=== PATIENT | female | born 1990 | race Caucasian/White ===

== ENCOUNTER 2016-10-13 21:07 | Emergency (ER) | payer OTHER ==
[~2016-10-13] VITALS: Ht 172.7 cm; Wt 123.4 kg
[~2016-10-13 21:07] MED LIST: ACET325T9 PO; ALBU0.63 NEB; ALBU8.5H6 INH; ALPR0.5T PO; ATROVENT HFA12.9 GM IH; BECL8.7A6 IH; CYCL10TA2 PO; DIAZ5TAB PO; DIGO0.12 PO; DIGO125T PO; DIPH25CA58 PO; ESCI20TA10 PO; ESOM20CA30 PO; FLUT16SP2 NS; HYDR-963 PO; HYDR10CA3 PO; LIDO700A4 TP; LISD60CA PO; LISD70CA3 PO; METH4TAB2 PO; OXYC15TA60 PO; PRAZ5CAP2 PO; PREG100C PO; SOTA160T PO; SOTA80TA PO; ZAFI20TA12 PO; [UNRECOGNIZED DRUG - OTHER] INH
[2016-10-13] MEDS ORDERED: IV NORMAL SALINE 1000ML BAG 1,000 ML IV SCH (22:00)
[2016-10-13] MEDS ORDERED: ONDANSETRON PF 4 MG/2 ML VIAL. IV ONE (22:00)
[2016-10-13 22:02] LABS: NEG OBC UR NEG; POS OBC UR POS
[2016-10-13 22:06] LABS: BILIRUBIN,URINE NEGATIVE (NEG); GLUCOSE,URINE NEGATIVE (NEG); NITRITE,URINE NEGATIVE (NEG); PROTEIN,URINE NEGATIVE (NEG-TRACE); UROBILINOGEN,URINE 0.2 mg/dL (0.2 mg/dL)
[2016-10-13 22:11] LABS: BACTERIA,URINE FEW /HPF (0-FEW); RBC,URINE 0 /HPF (0-2); SQUAMOUS EPITHELIAL CELL,UR MOD /LPF; WBC,URINE 0 /HPF (0-4)
[2016-10-13 22:24] LABS: BASO # 0.1 x10^3/uL (0.0-0.2); BASO % 1 % (0-3); EOS % 4 % (0-3); HEMATOCRIT 36.9 % (36.0-47.0); HEMOGLOBIN 11.9 g/dL (12.0-15.5); LYMPH # 2.6 x10^3/uL (1.0-4.8); LYMPH % 29 % (24-48); MEAN CORPUSCULAR HEMOGLOBIN 27 pg (25-35); MEAN CORPUSCULAR HGB CONC 32 g/dL (31-37); MEAN CORPUSCULAR VOLUME 84 fL (79-100); MONO % 8 % (0-9); NEUT % 59 % (31-73); PLATELET COUNT 236 x10^3/uL (140-400); RED BLOOD COUNT 4.42 x10^6/uL (3.50-5.40); RED CELL DISTRIBUTION WIDTH 15.1 % (11.5-14.5); WHITE BLOOD COUNT 9.1 x10^3/uL (4.0-11.0)
[2016-10-13 22:31] LABS: CALCIUM 8.5 mg/dL (8.5-10.1); CREATININE 0.8 mg/dL (0.6-1.0); GFR 87.4; POTASSIUM 3.3 mmol/L (3.5-5.1)
[2016-10-13 22:37] LABS: ALBUMIN 3.6 g/dL (3.4-5.0); ALBUMIN/GLOBULIN RATIO 1.4 (1.0-1.7); TOTAL BILIRUBIN 0.3 mg/dL (0.2-1.0); TOTAL PROTEIN 6.2 g/dL (6.4-8.2)
[2016-10-13] MEDS ORDERED: ONDA4TAB7 PO (23:59)
[2016-10-14 00:30] VITALS: BP 104/59
--- NOTE | 2016-10-14 01:10 | ED.ADGEN ---
Past Medical History Past Medical History: Anxiety, Asthma, Bipolar, Depression, GERD, Hypotension, Other Additional Past Medical Histor: ADHD, BRADYCARDIA, POC, PTSD, shingles, sick sinus syndrome Past Surgical History: Appendectomy, Cholecystectomy, , Pacemaker, Other Additional Past Surgical Histo: (R) KNEE REPAIR Alcohol Use: None Drug Use: Marijuana Adult General Chief Complaint Chief Complaint: OTHER COMPLAINTS HPI HPI Patient is a 26 year old woman, history of sick sinus syndrome with pacemaker in place, asthma, hypertension, bipolar disorder, who presents to the emergency department with complaint of concern for an allergic reaction after taking Imodium at home. Patient states that she's been experiencing diarrhea and abdominal cramping for the past day. She denies any nausea or vomiting, any sick contacts or exposures, states that she is having cramping in her lower abdomen, and multiple episodes of loose watery stool, no blood in her stool. He states he is compliant with all of her medications. Denies any drugs alcohol cigarettes or injuries. She states she took Imodium approximately 20 minutes prior to arrival in the ED, and began experiencing facial flushing, and a feeling of anxiety. She states she spoke to her mother, who works at [facility] [employer], and was told to come to the ED for evaluation with concern for an allergic reaction. At this time the patient is not experiencing any allergic type symptoms. She she has not taken Benadryl or other medications prior to coming to the ED. Review of Systems Review of Systems Constitutional: Denies fever or chills. [] Eyes: Denies change in visual acuity. [] HENT: Denies nasal congestion or sore throat. [] Respiratory: Denies cough or shortness of breath. [] Cardiovascular: Denies chest pain or edema. [] GI: Denies abdominal pain, nausea, vomiting, bloody stools or diarrhea. [] : Denies dysuria. [] Musculoskeletal: Denies back pain or joint pain. [] Integument: Denies rash. [] Neurologic: Denies headache, focal weakness or sensory changes. [] Endocrine: Denies polyuria or polydipsia. [] Lymphatic: Denies swollen glands. [] Psychiatric: Denies depression or anxiety. [] Current Medications Current Medications Current Medications Medications (Trade) Dose Ordered Sig/Luzmaria Start Time Stop Time Status Last Admin Dose Admin Ondansetron HCl (Zofran) 4 mg 1X ONCE 10/13/16 22:00 10/13/16 22:01 DC 10/13/16 22:56 4 MG Sodium Chloride (Iv Sodium Chloride 0.9% 1000ml Bag) 1,000 ml @ 1,000 mls/hr Q1H 10/13/16 22:00 10/13/16 22:59 DC 10/13/16 21:52 1,000 MLS/HR Allergies Allergies Allergies Coded Allergies Type Severity Reaction Last Updated Verified Penicillins Allergy Severe Anaphylaxis 04/25/15 Yes chicken derived Allergy Severe ANAPHYLAXIS 10/13/16 Yes NSAIDS (Non-Steroidal Anti-Inflamma Allergy Intermediate Itching/facial swelling 04/25/15 Yes acyclovir Allergy Intermediate abdominal pain 04/25/15 Yes bupropion HCl Allergy Intermediate tachycardia 04/25/15 Yes cephalexin Allergy Intermediate Itching 07/18/14 Yes clarithromycin Allergy Intermediate "oral vescicles" 07/18/14 Yes doxycycline Allergy Intermediate Itching/facial swelling 07/18/14 Yes erythromycin base Allergy Intermediate Itching/pain 07/18/14 Yes fentanyl Allergy Intermediate Hives 07/18/14 Yes fluvoxamine maleate Allergy Intermediate Hives 07/18/14 Yes gabapentin Allergy Intermediate Hives 07/18/14 Yes honey Allergy Intermediate Itching 07/18/14 Yes ibuprofen Allergy Intermediate Hives 07/18/14 Yes levofloxacin Allergy Intermediate arthralgias, myalgias 07/18/14 Yes montelukast sodium Allergy Intermediate Nausea and Vomiting/headaches Yes morphine Allergy Intermediate Itching, TOLERATES HYDROMORPHONE 07/24/14 Yes pantoprazole Allergy Intermediate Swelling 03/07/15 Yes trazodone Allergy Intermediate 07/24/14 Yes ziprasidone Allergy Intermediate 10/13/16 Yes aspirin Allergy Unknown Hives 10/13/16 Yes azithromycin Allergy Unknown Itching 10/13/16 Yes shrimp Allergy Unknown Swelling 10/13/16 Yes Physical Exam Physical Exam Constitutional: Well developed, well nourished, no acute distress, non-toxic appearance. [] HENT: Normocephalic, atraumatic, bilateral external ears normal, oropharynx moist, no oral exudates, nose normal. [] Eyes: PERRLA, EOMI, conjunctiva normal, no discharge. [] Neck: Normal range of motion, no tenderness, supple, no stridor. [] Cardiovascular:Heart rate regular rhythm, no murmur, S1, S2, no murmurs rubs or gallops. Patient with pacemaker site clean dry and intact on palpation. [] Lungs & Thorax: Bilateral breath sounds clear to auscultation, no wheezing, rhonchi, rales. No chest tenderness or crepitus. [] Abdomen: Bowel sounds normal, soft, mild tenderness to palpation, rather lower quadrant, no rebound, no rigidity, no guarding , no masses, no pulsatile masses. [] Skin: Warm, dry, no erythema, no rash. [] Back: No tenderness, no CVA tenderness. [] Extremities: No tenderness, no cyanosis, no clubbing, ROM intact, no edema. [ Negative Homans sign.] Neurologic: Alert and oriented X 3, normal motor function, normal sensory function, no focal deficits noted. [] Psychologic: Affect normal, judgement normal, mood normal. [] Current Patient Data Vital Signs Vital Signs Date Time Temp Pulse Resp B/P Pulse Ox O2 Delivery O2 Flow Rate FiO2 10/13/16 22:45 62 20 102/58 99 Room Air 10/13/16 21:07 97.8 97.8 Lab Values Laboratory Tests Test 10/13/16 21:40 10/13/16 22:15 Urine Collection Type Unknown Urine Color Yellow Urine Clarity Clear Urine pH 6.0 Urine Specific [place] <=1.005 Urine Protein Negativemg/dL (NEG-TRACE) Urine Glucose (UA) Negativemg/dL (NEG) Urine Ketones (Stick) Negativemg/dL (NEG) Urine Blood Negative (NEG) Urine Nitrite Negative (NEG) Urine Bilirubin Negative (NEG) Urine Urobilinogen Dipstick 0.2mg/dL (0.2 mg/dL) Urine Leukocyte Esterase Negative (NEG) Urine RBC 0/HPF (0-2) Urine WBC 0/HPF (0-4) Urine Squamous Epithelial Cells Mod/LPF Urine Bacteria Few/HPF (0-FEW) Urine Test Negative (NEG) White Blood Count 9.1x10^3/uL (4.0-11.0) Red Blood Count 4.42x10^6/uL (3.50-5.40) Hemoglobin 11.9g/dL (12.0-15.5) L Hematocrit 36.9% (36.0-47.0) Mean Corpuscular Volume 84fL (79-100) Mean Corpuscular Hemoglobin 27pg (25-35) Mean Corpuscular Hemoglobin Concent 32g/dL (31-37) Red Cell Distribution Width 15.1% (11.5-14.5) H Platelet Count 236x10^3/uL (140-400) Neutrophils (%) (Auto) 59% (31-73) Lymphocytes (%) (Auto) 29% (24-48) Monocytes (%) (Auto) 8% (0-9) Eosinophils (%) (Auto) 4% (0-3) H Basophils (%) (Auto) 1% (0-3) Neutrophils # (Auto) 5.3x10^3uL (1.8-7.7) Lymphocytes # (Auto) 2.6x10^3/uL (1.0-4.8) Monocytes # (Auto) 0.7x10^3/uL (0.0-1.1) Eosinophils # (Auto) 0.3x10^3/uL (0.0-0.7) Basophils # (Auto) 0.1x10^3/uL (0.0-0.2) Sodium Level 140mmol/L (136-145) Potassium Level 3.3mmol/L (3.5-5.1) L Chloride Level 108mmol/L (98-107) H Carbon Dioxide Level 23mmol/L (21-32) Anion Gap 9 (6-14) Blood Urea Nitrogen 10mg/dL (7-20) Creatinine 0.8mg/dL (0.6-1.0) Estimated GFR (Cockcroft-Gault) 87.4 BUN/Creatinine Ratio 13 (6-20) Glucose Level 108mg/dL (70-99) H Calcium Level 8.5mg/dL (8.5-10.1) Total Bilirubin 0.3mg/dL (0.2-1.0) Aspartate Amino Transferase (AST) 27U/L (15-37) Alanine Aminotransferase (ALT) 37U/L (14-59) Alkaline Phosphatase 81U/L (46-116) Total Protein 6.2g/dL (6.4-8.2) L Albumin 3.6g/dL (3.4-5.0) Albumin/Globulin Ratio 1.4 (1.0-1.7) Lipase 92U/L (73-393) Laboratory Tests 10/13/16 22:15 Laboratory Tests 10/13/16 22:15 EKG EKG ECG: Rhythm strip: Sinus rhythm, paced rhythm, heart rate 70 bpm, as interpreted by me. [] Radiology/Procedures Radiology/Procedures Not indicated. [] Course & Med Decision Making Course & Med Decision Making Pertinent Labs and Imaging studies reviewed. (See chart for details) Patient well-appearing, with normal vital signs in arrival. No evidence of lower airspace disease or airway compromise, no rashes or other findings consistent with allergic reaction at this time. Patient has recently been on antibiotics, multiple courses of the past 2 months for upper respiratory infection. He is not currently on any antibiotics, but is concerned that she may have developed C. difficile, as the cause of her diarrhea. I stated patient that if she produced a stool sample in the ED was sent down for analysis, but she is already sprinting diarrhea for the past 24 hours. She denies drinking any other symptoms. Patient received Zofran in the ED, IV fluids, and laboratory studies. Motor says revealed very mild hypokalemia, no other acutely concerning findings. Patient is tolerating by mouth fluids in the ED without issue. Patient did not have a additional bowel movement in the ED. After she was observed for several hours, I discussed these findings with patient, and she is ready to be discharged home, has not have recurrence of any concerning symptoms. Discussed with her that if diarrhea returns or persists that she needs to follow-up with a primary care provider, and to continue all medications as directed. To return to the ED for concerning symptoms as discussed. Patient voiced understanding and agreement with plan as stated. Discharged home in stable condition with plan as above. Dragon Disclaimer Dragon Disclaimer This electronic medical record was generated, in whole or in part, using a voice recognition dictation system. Departure Impression: Primary Impression: Diarrhea Disposition: 01 HOME, SELF-CARE Condition: IMPROVED Scripts Ondansetron Hcl (Zofran)4 Mg Tablet4 Mg PO BID PRN NAUSEA/VOMITING #10 TAB Prov:BOSTON BORRERO DO 10/13/16 Problem Qualifiers Primary Impression: Diarrhea Diarrhea type: unspecified type Qualified Code: R19.7 - Diarrhea, unspecified BOSTON BORRERO DO Oct 14, 2016 01:10
== END 2016-10-14 00:40 | disposition home or self-care (01) ==
LOC: ER 21:07
DX: T47.6X5A Adverse effect of antidiarrheal drugs, initial encounter (principal); R19.7 Diarrhea, unspecified; F31.9 Bipolar disorder, unspecified; I10 Essential (primary) hypertension; K21.9 Gastro-esophageal reflux disease without esophagitis; J45.909 Unspecified asthma, uncomplicated; I49.5 Sick sinus syndrome; F90.9 Attention-deficit hyperactivity disorder, unspecified type; F12.10 Cannabis abuse, uncomplicated; F43.10 Post-traumatic stress disorder, unspecified; Z95.0 Presence of cardiac pacemaker; Z98.890 Other specified postprocedural states; Z90.49 Acquired absence of other specified parts of digestive tract; F41.9 Anxiety disorder, unspecified; Z88.0 Allergy status to penicillin; Z88.1 Allergy status to other antibiotic agents; Z88.6 Allergy status to analgesic agent; Z91.013 Allergy to seafood; Z88.8 Allergy status to other drugs, medicaments and biological substances; Z91.018 Allergy to other foods; Y92.098 Other place in other non-institutional residence as the place of occurrence of the external cause
CPT/HCPCS: 80053; 81001; 81025; 83690; 85027; 96361; 96374; 99284; J2405; J7030; 36415

== ENCOUNTER → 2016-11-02 | Outpatient (CLI) | payer OTHER ==
[2016-10-14 00:30] VITALS: BP 104/59
[~2016-11-02] MED LIST changes: +ONDA4TAB7 PO
[2016-11-02 12:01] LABS: BASO % 0 % (0-3); EOS % 5 % (0-3); HEMATOCRIT 43.9 % (36.0-47.0); HEMOGLOBIN 14.1 g/dL (12.0-15.5); LYMPH % 16 % (24-48); MEAN CORPUSCULAR HEMOGLOBIN 26 pg (25-35); MEAN CORPUSCULAR HGB CONC 32 g/dL (31-37); MEAN CORPUSCULAR VOLUME 82 fL (79-100); MONO % 7 % (0-9); NEUT % 72 % (31-73); PLATELET COUNT 299 x10^3/uL (140-400); RED BLOOD COUNT 5.35 x10^6/uL (3.50-5.40); RED CELL DISTRIBUTION WIDTH 15.3 % (11.5-14.5); WHITE BLOOD COUNT 12.7 x10^3/uL (4.0-11.0)
== END | disposition home or self-care (01) ==
LOC: LAB 11:31
PROVIDERS: ATTEND Internal Medicine Gastroenterology
DX: R19.7 Diarrhea, unspecified (principal)
CPT/HCPCS: 36415; 85027; 87324

== ENCOUNTER 2017-06-08 17:54 | Emergency (ER) | payer OTHER ==
[~2017-06-08] VITALS: Ht 170.2 cm; Wt 123.4 kg
[~2017-06-08 17:54] MED LIST changes: -ESCI20TA10 PO; +LEXAPRO20 MG PO; -LISD70CA3 PO; +LISD70CA5 PO; -SOTA80TA PO; +SOTA80TA48 PO
[2017-06-08 18:14] VITALS: BP 131/59
[2017-06-08] MEDS ORDERED: CIPR500T94 PO (19:01)
--- NOTE | 2017-06-08 19:01 | PHYS DOC ---
Past Medical History Past Medical History: Anxiety, Asthma, Bipolar, Depression, GERD, Hypotension, Other Additional Past Medical Histor: ADHD, BRADYCARDIA, POC, PTSD, shingles, sick sinus syndrome Past Surgical History: Appendectomy, Cholecystectomy, , Pacemaker, Other Additional Past Surgical Histo: (R) KNEE REPAIR Alcohol Use: None Drug Use: Marijuana Adult General Chief Complaint Chief Complaint: EARACHE/EAR PAIN [facility] HPI Patient is a 27 year old female with history of anxiety asthma hypertension bipolar who presents today complaining of coughing and nasal congestion for 10 days and left ear pain that began today after coughing hard. Patient denies any drainage from the left ear. Denies any fever. Review of Systems Review of Systems Constitutional: See history of present illness Eyes: Denies change in visual acuity, redness, or eye pain [] HENT: nasal congestion left ear pain Respiratory: cough Cardiovascular: No additional information not addressed in HPI [] GI: Denies abdominal pain, nausea, vomiting, bloody stools or diarrhea [] : Denies dysuria or hematuria [] Musculoskeletal: Denies back pain or joint pain [] Integument: Denies rash or skin lesions [] Neurologic: Denies headache, focal weakness or sensory changes [] Endocrine: Denies polyuria or polydipsia [] Allergies Allergies Allergies Coded Allergies Type Severity Reaction Last Updated Verified Penicillins Allergy Severe Anaphylaxis 04/25/15 Yes chicken derived Allergy Severe ANAPHYLAXIS 10/13/16 Yes NSAIDS (Non-Steroidal Anti-Inflamma Allergy Intermediate Itching/facial swelling 04/25/15 Yes acyclovir Allergy Intermediate abdominal pain 04/25/15 Yes bupropion HCl Allergy Intermediate tachycardia 04/25/15 Yes cephalexin Allergy Intermediate Itching 07/18/14 Yes clarithromycin Allergy Intermediate "oral vescicles" 07/18/14 Yes doxycycline Allergy Intermediate Itching/facial swelling 07/18/14 Yes erythromycin base Allergy Intermediate Itching/pain 07/18/14 Yes fentanyl Allergy Intermediate Hives 07/18/14 Yes fluvoxamine maleate Allergy Intermediate Hives 07/18/14 Yes gabapentin Allergy Intermediate Hives 07/18/14 Yes honey Allergy Intermediate Itching 07/18/14 Yes ibuprofen Allergy Intermediate Hives 07/18/14 Yes levofloxacin Allergy Intermediate arthralgias, myalgias 07/18/14 Yes montelukast sodium Allergy Intermediate Nausea and Vomiting/headaches Yes morphine Allergy Intermediate Itching, TOLERATES HYDROMORPHONE 07/24/14 Yes pantoprazole Allergy Intermediate Swelling 03/07/15 Yes trazodone Allergy Intermediate 07/24/14 Yes ziprasidone Allergy Intermediate 10/13/16 Yes aspirin Allergy Unknown Hives 10/13/16 Yes azithromycin Allergy Unknown Itching 10/13/16 Yes shrimp Allergy Unknown Swelling 10/13/16 Yes Physical Exam Physical Exam Constitutional: Well developed, well nourished, no acute distress, non-toxic appearance. [] HENT: Normocephalic, atraumatic, bilateral external ears normal, oropharynx moist, no oral exudates, Patient sounds congested nasally. Bilateral nasal turbinates are boggy and erythematous. Left TM is moderately injected, right TM is mildly injected Eyes: PERRLA, EOMI, conjunctiva normal, no discharge. [] Neck: Normal range of motion, no tenderness, supple, no stridor. [] Cardiovascular:Heart rate regular rhythm, no murmur [] Lungs & Thorax: Bilateral breath sounds clear to auscultation [] Abdomen: Bowel sounds normal, soft, no tenderness, no masses, no pulsatile masses. [] Skin: Warm, dry, no erythema, no rash. [] Back: No tenderness, no CVA tenderness. [] Extremities: No tenderness, no cyanosis, no clubbing, ROM intact, no edema. [] Neurologic: Alert and oriented X 3, normal motor function, normal sensory function, no focal deficits noted. [] Psychologic: Affect normal, judgement normal, mood normal. [] Current Patient Data Vital Signs Vital Signs Date Time Temp Pulse Resp B/P (MAP) Pulse Ox O2 Delivery O2 Flow Rate FiO2 06/08/17 18:14 98.2 73 16 98 Room Air 98.2 EKG EKG [] Radiology/Procedures Radiology/Procedures [] Course & Med Decision Making Course & Med Decision Making Pertinent Labs and Imaging studies reviewed. (See chart for details) Patient has otitis media sinusitis and a cough. She was requesting codeine with promethazine. Informed her we do not prescribe this medicine due to the increased risk of abuse. She states she is allergic to multiple medications. Gave her prescription for Cipro. Told her she can take any [id number] medication but she is not allergic to. F/u with her PCP in one week. Allison Disclaimer Allison Disclaimer This electronic medical record was generated, in whole or in part, using a voice recognition dictation system. Departure Departure Impression: Primary Impression: Sinusitis Additional Impressions: Otitis media Cough Disposition: HOME, SELF-CARE Condition: STABLE Referrals: NO PCP (PCP) follow with your doctor in one week Patient Instructions: Cough, Adult, Otitis Media, Adult, Sinusitis Additional Instructions: You were seen for sinus infection and ear infection. Take the prescribed antibiotic until completed. Take any [id number] medications for pain. Follow-up with your doctor in 1-2 weeks. Scripts Ciprofloxacin Hcl (CIPRO) 500 Mg Tablet 1 TAB PO BID, #20 TAB Prov: GERHARD BYRD APRN 06/08/17 Problem Qualifiers Primary Impression: Sinusitis Sinusitis location: frontal Chronicity: acute Recurrence: not specified as recurrent Qualified Codes: J01.10 - Acute frontal sinusitis, unspecified Additional Impressions: Otitis media Otitis media type: other nonsuppurative Chronicity: acute Laterality: bilateral Recurrence: not specified as recurrent Qualified Codes: H65.193 - Other acute nonsuppurative otitis media, bilateral GERHARD BYRD [employer] Jun 08, 2017 19:01
== END 2017-06-08 19:36 | disposition home or self-care (01) ==
LOC: ER 17:54
DX: J01.10 Acute frontal sinusitis, unspecified (principal); H65.193 Other acute nonsuppurative otitis media, bilateral; F41.9 Anxiety disorder, unspecified; J45.909 Unspecified asthma, uncomplicated; F31.9 Bipolar disorder, unspecified; K21.9 Gastro-esophageal reflux disease without esophagitis; I95.9 Hypotension, unspecified; F90.9 Attention-deficit hyperactivity disorder, unspecified type; F43.10 Post-traumatic stress disorder, unspecified; I10 Essential (primary) hypertension; Z95.0 Presence of cardiac pacemaker; Z90.49 Acquired absence of other specified parts of digestive tract; Z88.0 Allergy status to penicillin; Z88.6 Allergy status to analgesic agent; Z88.4 Allergy status to anesthetic agent; Z88.1 Allergy status to other antibiotic agents; Z88.5 Allergy status to narcotic agent; Z91.013 Allergy to seafood; Z91.018 Allergy to other foods
CPT/HCPCS: 99283

== ENCOUNTER 2017-06-29 00:46 | Emergency (ER) | payer SELFPAY ==
[~2017-06-29] VITALS: Ht 172.7 cm; Wt 117.9 kg
[~2017-06-29 00:46] MED LIST changes: +CIPR500T94 PO
[2017-06-29 00:57] VITALS: BP 118/65
[2017-06-29] MEDS ORDERED: IBUPROFEN 800 MG TABLET. PO ONE (01:45)
--- NOTE | 2017-06-29 01:45 | PHYS DOC ---
Past Medical History Past Medical History: Anxiety, Asthma, Bipolar, Depression, GERD, Hypotension, Other Additional Past Medical Histor: ADHD, BRADYCARDIA, POC, PTSD, shingles, sick sinus syndrome Past Surgical History: Appendectomy, Cholecystectomy, , Pacemaker, Other Additional Past Surgical Histo: (R) KNEE REPAIR Alcohol Use: None Drug Use: Marijuana Adult General Chief Complaint Chief Complaint: SORE THROAT HPI HPI 27-year-old female with a history of anxiety and asthma bipolar depression, now presents the emergency department complaining of sore throat for several days. Patient states she's been having a dry cough. She is a smoker. She has no fevers chills sweats or shaking chills. No headache or stiff neck. Patient has previously had a tonsillectomy. She states she has some mild discomfort with swallowing she is able swallow without difficulty. No voice changes or difficulty breathing. No other complaints Review of Systems Review of Systems Constitutional: Denies fever or chills [] Eyes: Denies change in visual acuity, redness, or eye pain [] HENT: Denies nasal congestion or sore throat [] Respiratory: Denies cough or shortness of breath [] Cardiovascular: No additional information not addressed in HPI [] GI: Denies abdominal pain, nausea, vomiting, bloody stools or diarrhea [] : Denies dysuria or hematuria [] Musculoskeletal: Denies back pain or joint pain [] Integument: Denies rash or skin lesions [] Neurologic: Denies headache, focal weakness or sensory changes [] Endocrine: Denies polyuria or polydipsia [] Current Medications Current Medications Current Medications Medications (Trade) Dose Ordered Sig/Luzmaria Start Time Stop Time Status Last Admin Dose Admin Ibuprofen (Motrin) 800 mg 1X ONCE 06/29/17 01:45 06/29/17 01:46 Allergies Allergies Allergies Coded Allergies Type Severity Reaction Last Updated Verified Penicillins Allergy Severe Anaphylaxis 04/25/15 Yes chicken derived Allergy Severe ANAPHYLAXIS 10/13/16 Yes acyclovir Allergy Intermediate abdominal pain 04/25/15 Yes bupropion HCl Allergy Intermediate tachycardia 04/25/15 Yes cephalexin Allergy Intermediate Itching 07/18/14 Yes clarithromycin Allergy Intermediate "oral vescicles" 07/18/14 Yes doxycycline Allergy Intermediate Itching/facial swelling 07/18/14 Yes erythromycin base Allergy Intermediate Itching/pain 07/18/14 Yes fentanyl Allergy Intermediate Hives 07/18/14 Yes fluvoxamine maleate Allergy Intermediate Hives 07/18/14 Yes gabapentin Allergy Intermediate Hives 07/18/14 Yes honey Allergy Intermediate Itching 07/18/14 Yes levofloxacin Allergy Intermediate arthralgias, myalgias 07/18/14 Yes montelukast sodium Allergy Intermediate Nausea and Vomiting/headaches Yes morphine Allergy Intermediate Itching, TOLERATES HYDROMORPHONE 07/24/14 Yes pantoprazole Allergy Intermediate Swelling 03/07/15 Yes trazodone Allergy Intermediate 07/24/14 Yes ziprasidone Allergy Intermediate 10/13/16 Yes aspirin Allergy Unknown Hives 10/13/16 Yes azithromycin Allergy Unknown Itching 10/13/16 Yes shrimp Allergy Unknown Swelling 10/13/16 Yes Physical Exam Physical Exam Well-appearing morbidly obese female no acute distress, supple neck normal appearing oropharynx no anterior cervical adenopathy. Normal voice no stridor clear lungs regular rate and rhythm nontender abdomen normal extremities benign exam Constitutional: Well developed, well nourished, no acute distress, non-toxic appearance. [] HENT: Normocephalic, atraumatic, bilateral external ears normal, oropharynx moist, no oral exudates, nose normal. [] Eyes: PERRLA, EOMI, conjunctiva normal, no discharge. [] Neck: Normal range of motion, no tenderness, supple, no stridor. [] Cardiovascular:Heart rate regular rhythm, no murmur [] Lungs & Thorax: Bilateral breath sounds clear to auscultation [] Abdomen: Bowel sounds normal, soft, no tenderness, no masses, no pulsatile masses. [] Skin: Warm, dry, no erythema, no rash. [] Back: No tenderness, no CVA tenderness. [] Extremities: No tenderness, no cyanosis, no clubbing, ROM intact, no edema. [] Neurologic: Alert and oriented X 3, normal motor function, normal sensory function, no focal deficits noted. [] Psychologic: Affect normal, judgement normal, mood normal. [] Current Patient Data Vital Signs Vital Signs Date Time Temp Pulse Resp B/P (MAP) Pulse Ox O2 Delivery O2 Flow Rate FiO2 06/29/17 00:57 98.5 74 20 98 Room Air 98.5 EKG EKG [] Radiology/Procedures Radiology/Procedures [] Course & Med Decision Making Course & Med Decision Making Pertinent Labs and Imaging studies reviewed. (See chart for details) Signs and symptoms consistent with viral syndrome with URI and mild sore throat. No clinical evidence of strep. Patient is concerned about the possibility of strep so rapid strep test is pending. No further workup or treatment is indicated as patient has no evidence of bacterial infection. She is aware to use Mucinex DM [id number] or other oaiu-xap-cestrws cough control formulations as desired. We discussed smoking cessation and patient is aware of critical importance of quitting tobacco to optimize her long-term health. No further workup or treatment indicated patient agrees with outpatient follow-up tomorrow and strict return precautions given [] Dragon Disclaimer Dragon Disclaimer This electronic medical record was generated, in whole or in part, using a voice recognition dictation system. Departure Departure Impression: Primary Impression: Viral URI with cough Additional Impression: Viral pharyngitis Disposition: HOME, SELF-CARE Condition: STABLE Referrals: NO PCP (PCP) Patient Instructions: Upper Respiratory Infection, Adult, Viral Pharyngitis Additional Instructions: It appears that your sore throat as well as your upper respiratory infection are a result of viral syndrome. Viral infections get better on their own it's important to just rest and drink plenty of fluids. If you have fevers take Motrin and Tylenol as needed. Consider [id number] Mucinex DM for cough control as well as to break up mucus. Follow-up with your doctor tomorrow and return immediately for new severe or worsening symptoms Problem Qualifiers NATASHA DÍAZ MD Jun 29, 2017 01:45
[2017-06-29 06:55] LABS: NEGATIVE OBC STREP NEG; POSITIVE OBC STREP POS
== END 2017-06-29 01:57 | disposition home or self-care (01) ==
LOC: ER 00:46
DX: J02.8 Acute pharyngitis due to other specified organisms (principal); J06.9 Acute upper respiratory infection, unspecified; B97.89 Other viral agents as the cause of diseases classified elsewhere; E66.01 Morbid (severe) obesity due to excess calories; F41.9 Anxiety disorder, unspecified; J45.909 Unspecified asthma, uncomplicated; F31.9 Bipolar disorder, unspecified; K21.9 Gastro-esophageal reflux disease without esophagitis; I95.9 Hypotension, unspecified; F90.9 Attention-deficit hyperactivity disorder, unspecified type; F43.10 Post-traumatic stress disorder, unspecified; F17.200 Nicotine dependence, unspecified, uncomplicated; Z95.0 Presence of cardiac pacemaker; Z88.0 Allergy status to penicillin; Z68.39 Body mass index [BMI] 39.0-39.9, adult; Z90.49 Acquired absence of other specified parts of digestive tract; Z88.6 Allergy status to analgesic agent; Z88.4 Allergy status to anesthetic agent; Z88.1 Allergy status to other antibiotic agents; Z91.02 Food additives allergy status; Z91.013 Allergy to seafood; Z88.8 Allergy status to other drugs, medicaments and biological substances; Z91.018 Allergy to other foods
CPT/HCPCS: 87070; 87880; 99283

== ENCOUNTER 2017-07-02 09:43 | Emergency (ER) | payer SELFPAY ==
[~2017-07-02] VITALS: Ht 170.2 cm; Wt 113.4 kg
[2017-07-02 09:57] VITALS: BP 145/67
[2017-07-02] MEDS ORDERED: SULF1TAB24 PO (10:11)
[2017-07-02] MEDS ORDERED: PRED20TA PO (10:11)
--- NOTE | 2017-07-02 10:11 | PHYS DOC ---
Past Medical History Past Medical History: Anxiety, Asthma, Bipolar, Depression, GERD, Hypotension, Other Additional Past Medical Histor: ADHD, BRADYCARDIA, POC, PTSD, shingles, sick sinus syndrome Past Surgical History: Appendectomy, Cholecystectomy, , Pacemaker, Other Additional Past Surgical Histo: (R) KNEE REPAIR Alcohol Use: None Drug Use: Marijuana Adult General Chief Complaint Chief Complaint: SORE THROAT HPI HPI Patient is a 27 year old female with a history of asthma presents the ED complaining of sore throat 4 days. Pain with swallowing. Rates the pain as 8 out of 10. Describes as sharp. Associated symptoms include cough. Denies headache, fever, nausea/vomiting, abdominal pain, chest pain or shortness of breath. Currently on LMP. Review of Systems Review of Systems Constitutional: Denies fever or chills [] Eyes: Denies change in visual acuity, redness, or eye pain [] HENT: Denies nasal congestion. Complains of sore throat. [] Respiratory: Complains of cough. Denies shortness of breath [] Cardiovascular: No additional information not addressed in HPI [] GI: Denies abdominal pain, nausea, vomiting, bloody stools or diarrhea [] : Denies dysuria or hematuria [] Musculoskeletal: Denies back pain or joint pain [] Integument: Denies rash or skin lesions [] Neurologic: Denies headache, focal weakness or sensory changes [] Endocrine: Denies polyuria or polydipsia [] Allergies Allergies Allergies Coded Allergies Type Severity Reaction Last Updated Verified Penicillins Allergy Severe Anaphylaxis 04/25/15 Yes chicken derived Allergy Severe ANAPHYLAXIS 10/13/16 Yes acyclovir Allergy Intermediate abdominal pain 04/25/15 Yes bupropion HCl Allergy Intermediate tachycardia 04/25/15 Yes cephalexin Allergy Intermediate Itching 07/18/14 Yes clarithromycin Allergy Intermediate "oral vescicles" 07/18/14 Yes doxycycline Allergy Intermediate Itching/facial swelling 07/18/14 Yes erythromycin base Allergy Intermediate Itching/pain 07/18/14 Yes fentanyl Allergy Intermediate Hives 07/18/14 Yes fluvoxamine maleate Allergy Intermediate Hives 07/18/14 Yes gabapentin Allergy Intermediate Hives 07/18/14 Yes honey Allergy Intermediate Itching 07/18/14 Yes levofloxacin Allergy Intermediate arthralgias, myalgias 07/18/14 Yes montelukast sodium Allergy Intermediate Nausea and Vomiting/headaches Yes morphine Allergy Intermediate Itching, TOLERATES HYDROMORPHONE 07/24/14 Yes pantoprazole Allergy Intermediate Swelling 03/07/15 Yes trazodone Allergy Intermediate 07/24/14 Yes ziprasidone Allergy Intermediate 10/13/16 Yes aspirin Allergy Unknown Hives 10/13/16 Yes azithromycin Allergy Unknown Itching 10/13/16 Yes shrimp Allergy Unknown Swelling 10/13/16 Yes Physical Exam Physical Exam Constitutional: Well developed, well nourished, no acute distress, non-toxic appearance. [] HENT: Normocephalic, atraumatic, bilateral external ears normal, oropharynx moist, MILD PHARYNGEAL ERYTHEMA. Uvula midline. no oral exudates, nose normal. [ ] Eyes: PERRLA, EOMI, conjunctiva normal, no discharge. [] Neck: Normal range of motion, no tenderness, supple, no stridor. [] Cardiovascular:Heart rate regular rhythm, no murmur [] Lungs & Thorax: Bilateral breath sounds clear to auscultation [] Abdomen: Bowel sounds normal, soft, no tenderness, no masses, no pulsatile masses. [] Skin: Warm, dry, no erythema, no rash. [] Back: No tenderness, no CVA tenderness. [] Extremities: No tenderness, no cyanosis, no clubbing, ROM intact, no edema. [] Neurologic: Alert and oriented X 3, normal motor function, normal sensory function, no focal deficits noted. [] Psychologic: Affect normal, judgement normal, mood normal. [] Current Patient Data Vital Signs Vital Signs Date Time Temp Pulse Resp B/P (MAP) Pulse Ox O2 Delivery O2 Flow Rate FiO2 07/02/17 09:57 98.6 83 20 97 Room Air 98.6 EKG EKG [] Radiology/Procedures Radiology/Procedures [] Course & Med Decision Making Course & Med Decision Making Pertinent Labs and Imaging studies reviewed. (See chart for details) [] Patient states she is allergic to multiple antibiotics except for Bactrim. States she has taken in the past and has had no problem. Denies history of anaphylactic reaction. Will prescribe Bactrim and Prednisone. Patient has inhaler at home. Vital stable, no acute distress. Discussed follow-up with PCP in one to 2 days. Provided contact information/education. Discussed reasons to return to the ED. Patient understands and agrees with plan. Dragon Disclaimer Dragon Disclaimer This electronic medical record was generated, in whole or in part, using a voice recognition dictation system. Departure Departure Impression: Primary Impression: Cough Additional Impression: Sore throat Disposition: HOME, SELF-CARE Condition: STABLE Referrals: NO PCP (PCP) NATASHA HARTMANN MD Patient Instructions: Cough, Adult, Sore Throat Scripts Sulfamethoxazole/Trimethoprim (BACTRIM DS TABLET) 1 Each Tablet 1 TAB PO BID, #20 TAB Prov: TATY JOHNSON 07/02/17 Prednisone (PREDNISONE) 20 Mg Tablet 2 TAB PO DAILY, #10 TAB Prov: TATY JOHNSON 07/02/17 Problem Qualifiers TATY JOHNSON Jul 02, 2017 10:11
== END 2017-07-02 10:28 | disposition home or self-care (01) ==
LOC: ER 09:43
DX: R05 Cough (principal); J02.9 Acute pharyngitis, unspecified; J45.909 Unspecified asthma, uncomplicated; K21.9 Gastro-esophageal reflux disease without esophagitis; F90.9 Attention-deficit hyperactivity disorder, unspecified type; F43.10 Post-traumatic stress disorder, unspecified; Z95.0 Presence of cardiac pacemaker; Z88.0 Allergy status to penicillin; Z88.1 Allergy status to other antibiotic agents; Z91.018 Allergy to other foods; Z91.013 Allergy to seafood
CPT/HCPCS: 99283

== ENCOUNTER 2017-10-28 16:38 | Emergency (ER) | payer SELFPAY ==
[2017-10-28 18:17] LABS: INFLUENZA A PATIENT NEGATIVE (NEGATIVE); INFLUENZA B PATIENT NEGATIVE (NEGATIVE); OBC FLU VALID
== END 2017-10-28 18:44 | disposition home or self-care (01) ==
LOC: ER 16:38
DX: R05 Cough (principal); R09.81 Nasal congestion; R50.9 Fever, unspecified; J02.9 Acute pharyngitis, unspecified; F41.9 Anxiety disorder, unspecified; J45.909 Unspecified asthma, uncomplicated; F31.9 Bipolar disorder, unspecified; K21.9 Gastro-esophageal reflux disease without esophagitis; I95.9 Hypotension, unspecified; F90.9 Attention-deficit hyperactivity disorder, unspecified type; F43.10 Post-traumatic stress disorder, unspecified; F12.10 Cannabis abuse, uncomplicated; Z90.49 Acquired absence of other specified parts of digestive tract; Z95.0 Presence of cardiac pacemaker; Z88.6 Allergy status to analgesic agent; Z88.4 Allergy status to anesthetic agent; Z88.1 Allergy status to other antibiotic agents; Z88.5 Allergy status to narcotic agent; Z88.0 Allergy status to penicillin; Z91.013 Allergy to seafood; Z88.8 Allergy status to other drugs, medicaments and biological substances; Z91.018 Allergy to other foods
CPT/HCPCS: 87804; 87804-59; 99284

== ENCOUNTER 2017-11-25 10:07 | Emergency (ER) | payer SELFPAY ==
[2017-11-25] MEDS: DIPHTH,PERTUSS(ACELL),TET TOX 0.5 ML DISP.SYRIN. VAX IM ×2 (11:20)
== END 2017-11-25 11:58 | disposition home or self-care (01) ==
LOC: ER 10:07
DX: L02.01 Cutaneous abscess of face (principal); F41.9 Anxiety disorder, unspecified; J45.909 Unspecified asthma, uncomplicated; F31.9 Bipolar disorder, unspecified; K21.9 Gastro-esophageal reflux disease without esophagitis; I95.9 Hypotension, unspecified; F90.9 Attention-deficit hyperactivity disorder, unspecified type; F43.10 Post-traumatic stress disorder, unspecified; I10 Essential (primary) hypertension; F12.10 Cannabis abuse, uncomplicated; Z90.49 Acquired absence of other specified parts of digestive tract; Z95.0 Presence of cardiac pacemaker; Z87.891 Personal history of nicotine dependence; Z88.1 Allergy status to other antibiotic agents; Z88.0 Allergy status to penicillin; Z86.19 Personal history of other infectious and parasitic diseases; Z88.6 Allergy status to analgesic agent; Z88.4 Allergy status to anesthetic agent; Z88.5 Allergy status to narcotic agent; Z91.013 Allergy to seafood; Z88.8 Allergy status to other drugs, medicaments and biological substances; Z91.018 Allergy to other foods
CPT/HCPCS: 90471; 90715; 99283-25

== ENCOUNTER 2018-02-28 10:22 | Emergency (ER) | payer SELFPAY ==
[2018-02-28] MEDS: BENZONATATE 100 MG CAPSULE. PO (10:54)
[2018-02-28] MEDS: CETIRIZINE HCL 10 MG TABLET. PO (10:55)
[2018-02-28] MEDS: predniSONE 20 MG TABLET PO (10:55)
[2018-02-28] MEDS: IPRATRPIUM/ALBUTEROL 0.5/2.5MG 3 ML NEBU. NEB (11:05)
== END 2018-02-28 11:15 | disposition home or self-care (01) ==
LOC: ER 11:15
DX: J45.21 Mild intermittent asthma with (acute) exacerbation (principal); K21.9 Gastro-esophageal reflux disease without esophagitis; F90.9 Attention-deficit hyperactivity disorder, unspecified type; I10 Essential (primary) hypertension; F31.9 Bipolar disorder, unspecified; F43.10 Post-traumatic stress disorder, unspecified; Z95.0 Presence of cardiac pacemaker; F12.10 Cannabis abuse, uncomplicated; Z88.1 Allergy status to other antibiotic agents; Z88.0 Allergy status to penicillin; Z88.5 Allergy status to narcotic agent; Z88.8 Allergy status to other drugs, medicaments and biological substances; Z91.041 Radiographic dye allergy status; Z91.013 Allergy to seafood; Z88.4 Allergy status to anesthetic agent; Z91.018 Allergy to other foods
CPT/HCPCS: 94640; 99284; J7512; J7620

== ENCOUNTER 2018-07-04 12:47 | Observation (INO) | payer SELFPAY ==
[2018-07-04] VITALS (11 sets, daily range): BP systolic 100–128; BP diastolic 49–72
[~2018-07-04] VITALS: Ht 170.2 cm; Wt 113.9 kg
[~2018-07-04 12:47] MED LIST changes: +BENZ100C PO; +CETI10TA22 PO; +GUAI600T47 PO; +HYDR-971 PO; +PRED20TA PO; +PRED50TA PO; +PROAIR RESPICL90 MCG IH; +SULF1TAB24 PO
[2018-07-04 13:34] LABS: HEMATOCRIT 39.4 % (36.0-47.0); HEMOGLOBIN 13.3 g/dL (12.0-15.5); RED BLOOD COUNT 4.55 x10^6/uL (3.50-5.40); RED CELL DISTRIBUTION WIDTH 14.8 % (11.5-14.5); WHITE BLOOD COUNT 8.2 x10^3/uL (4.0-11.0)
[2018-07-04 13:45] LABS: PROTHROMBIN TIME PATIENT 13.2 SEC (11.7-14.0)
[2018-07-04 13:50] LABS: CALCIUM 9.6 mg/dL (8.5-10.1); CREATININE 0.9 mg/dL (0.6-1.0); GFR 75.1; POTASSIUM 3.8 mmol/L (3.5-5.1)
[2018-07-04] MEDS ORDERED: BACITRACIN 50,000 UNIT in IV NORMAL SALINE 250ML 250 ML IRR ONE (14:00)
[2018-07-04] MEDS ORDERED: LIDOCAINE 2%/EPI 1:100,000 20 ML VIAL. ONE (14:17)
[2018-07-04] MEDS ORDERED: LIDOCAINE 1% PF 30 ML VIAL. ONE (14:31)
[2018-07-04] MEDS ORDERED: MIDAZOLAM HCL/PF 2 MG/2 ML VIAL. ONE ×4 (14:34→16:10)
[2018-07-04] MEDS ORDERED: VANCOMYCIN 1GM IVPB FOR OMNI 250 ML ONE (14:34)
[2018-07-04] MEDS ORDERED: MIDAZOLAM HCL/PF 2 MG/2 ML VIAL. IV ONE ×2 (15:30→16:30)
[2018-07-04] MEDS ORDERED: LIDOCAINE 2%/EPI 1:100,000 20 ML VIAL. IJ ONE (15:30)
[2018-07-04] MEDS ORDERED: LIDOCAINE 2% 20 ML VIAL. IJ ONE (15:30)
[2018-07-04] MEDS ORDERED: VANCOMYCIN 1GM IVPB FOR OMNI 250 ML IV ONE (15:45)
[2018-07-04] MEDS ORDERED: ZOLPIDEM 5 MG TABLET. PO PRN (16:45)
[2018-07-04] MEDS ORDERED: NO ANTICOAGULANT THERAPY. MC PRN (16:45)
[2018-07-04] MEDS: HYDROcodone/APAP 5/325MG 1 TAB TABLET PO PRN ×2 (16:55→21:56)
[2018-07-04] MEDS: ALPRAZolam 0.5 MG TABLET PO PRN (16:55)
--- NOTE | 2018-07-04 16:59 | PDOC4 ---
PROCEDURE Procedure PROCEDURE NOTE Procedure: Mobilization of permanent pacemaker generator Preoperative diagnosis: Migration of pacemaker generator Postoperative diagnosis: The same Procedure note: This patient is a 28-year-old lady with a history of syncope and bradycardia. She has a pacemaker that has been functioning normally but in her job she has to lift boxes and reach up above her head very frequently. Recently she started noticing that she was having a lot of progressive pain to the left shoulder and the pacemaker area. She came to see me earlier this week and I found that the pacemaker had migrated upwards and was essentially up against the clavicle and whenever she moved her left arm or shoulder it was creating pain. We discussed the situation and the options and decided to bring her in to mobilize the pacemaker generator at a lower point and to suture it to the fascia in order to try to keep it from migrating in the future again. The patient came in and multiple attempts at starting an IV on both arms were failed by multiple people including myself. Therefore it was decided to put a central line in to be able to do the procedure and give sedation as well as the antibiotics. The patient agreed with this and has signed an informed consent for the procedure as well as insertion of groin lines. The patient was then taken to the [facility] where the right groin area was prepped and draped in the usual fashion. The area was infiltrated with Xylocaine. And then using Seldinger technique a Cordis sheath was inserted into the femoral vein and for monitoring purposes and other 1 was inserted into the femoral artery. Both sheaths were secured in place. The left shoulder area over the pacemaker was then prepped and draped in the usual fashion. The patient was extremely sensitive over the area and we had to give a lot of sedation just to be able to infiltrate the area with Xylocaine. Doing the procedure she was moving most of the time and every time we touched her she would cry out in pain. After finally infiltrated in the whole area with Xylocaine the skin was incised over the pacemaker. With blunt dissection I worked my way down to the pacemaker pocket and then I entered the pocket and extracted the pacemaker. The pacing leads were freed from the adhesions and scarring close to the generator. I then extended the patient's pacemaker generator pocket downward with blunt dissection. The generator was then placed in the pocket and I saw that he appears to be in a good position and significantly lower than before and he was not close to the clavicle. I then proceeded to place sutures on the fascia and then those sutures were passed through the hole in the generator and the generator was sutured in place a second suture was then placed on the other side of the generator header and sutured to the fascia there and then tied to the previous suture across the generator header. The generator appeared to be secure at this point therefore the whole area was irrigated with and then the pocket was closed with 3 layer years of running sutures. The skin edges were approximated with Dermabond. After the Dermabond was dry a dressing was applied over the area. We then went back to the groin to remove the lines that were in place. The arterial line was first removed and pressure was held the patient was crying out in pain throughout the entire holding time and required to have more sedation. Prior to removing the venous line we again had to give her more sedation with Versed. The venous line was then removed and pressure was held after which there appeared to be no active bleeding. A dressing was applied to the groin. At this time I was concerned with the amount of sedation that the patient was given and the poor pain tolerance as well as her being a young lady that is overweight so I did not want to discharge her home and I felt that the safest thing to do was to keep her overnight and if she is stable discharge her in the morning. Therefore the patient was then transferred to the telemetry floor in satisfactory condition. Her pacemaker was functioning normally. JOSE LAUREN MD Jul 04, 2018 16:59
[2018-07-04] MEDS ORDERED: ONDANSETRON ODT 4 MG TAB.RAPDIS. PO PRN (18:30)
[2018-07-04] MEDS: CYCLOBENZAPRINE 10 MG TABLET. PO PRN (18:36)
[2018-07-04] MEDS: ONDANSETRON ODT 4 MG TAB.RAPDIS. PO PRN (18:38)
[2018-07-05 02:24] VITALS: BP 100/56
[2018-07-05] MEDS: HYDROcodone/APAP 5/325MG 1 TAB TABLET PO PRN ×3 (05:23→19:31)
[2018-07-05] MEDS: CYCLOBENZAPRINE 10 MG TABLET. PO PRN ×3 (07:12→19:37)
[2018-07-05] MEDS: ALPRAZolam 0.5 MG TABLET PO PRN ×2 (07:12→13:21)
[2018-07-05 07:20] VITALS: BP 108/58
[2018-07-05] MEDS: HYDROmorphone 2 MG TABLET PO PRN ×3 (08:12→22:31)
[2018-07-05 11:40] VITALS: BP 92/47
--- NOTE | 2018-07-05 12:06 | PDOC ---
PROGRESS NOTES Subjective Subjective Patient complaining of severe pain to the left shoulder area as well as the arm and also of severe pain to the right groin Objective Objective Vital Signs Date Time Temp Pulse Resp B/P (MAP) Pulse Ox O2 Delivery O2 Flow Rate FiO2 07/05/18 11:40 97.7 60 16 92/47 (62) 98 Room Air 97.7 Intake and Output 07/05/18 07:00 Intake Total 500 ml Balance 500 ml Intake Oral 500 ml # Voids 2 Physical Exam Physical Exam Lungs clear. Heart sounds unchanged. No area of ecchymosis or hematomas over the left shoulder area. Right groin no hematoma Assessment Assessment Patient with severe pain issues. We will keep her here for 24 hours more trying to achieve pain control. Pacemaker functioning normally Comment Review of Relevant I have reviewed the following items rolando (where applicable) has been applied. Labs Laboratory Tests Test 07/04/18 13:28 White Blood Count 8.2 x10^3/uL (4.0-11.0) Red Blood Count 4.55 x10^6/uL (3.50-5.40) Hemoglobin 13.3 g/dL (12.0-15.5) Hematocrit 39.4 % (36.0-47.0) Mean Corpuscular Volume 87 fL (79-100) Mean Corpuscular Hemoglobin 29 pg (25-35) Mean Corpuscular Hemoglobin Concent 34 g/dL (31-37) Red Cell Distribution Width 14.8 % (11.5-14.5) Platelet Count 231 x10^3/uL (140-400) Prothrombin Time 13.2 SEC (11.7-14.0) Prothromb Time International Ratio 1.1 (0.8-1.1) Sodium Level 144 mmol/L (136-145) Potassium Level 3.8 mmol/L (3.5-5.1) Chloride Level 107 mmol/L (98-107) Carbon Dioxide Level 27 mmol/L (21-32) Anion Gap 10 (6-14) Blood Urea Nitrogen 13 mg/dL (7-20) Creatinine 0.9 mg/dL (0.6-1.0) Estimated GFR (Cockcroft-Gault) 75.1 Glucose Level 76 mg/dL (70-99) Calcium Level 9.6 mg/dL (8.5-10.1) Laboratory Tests Test 07/04/18 13:28 White Blood Count 8.2 x10^3/uL (4.0-11.0) Red Blood Count 4.55 x10^6/uL (3.50-5.40) Hemoglobin 13.3 g/dL (12.0-15.5) Hematocrit 39.4 % (36.0-47.0) Mean Corpuscular Volume 87 fL (79-100) Mean Corpuscular Hemoglobin 29 pg (25-35) Mean Corpuscular Hemoglobin Concent 34 g/dL (31-37) Red Cell Distribution Width 14.8 % (11.5-14.5) Platelet Count 231 x10^3/uL (140-400) Prothrombin Time 13.2 SEC (11.7-14.0) Prothromb Time International Ratio 1.1 (0.8-1.1) Sodium Level 144 mmol/L (136-145) Potassium Level 3.8 mmol/L (3.5-5.1) Chloride Level 107 mmol/L (98-107) Carbon Dioxide Level 27 mmol/L (21-32) Anion Gap 10 (6-14) Blood Urea Nitrogen 13 mg/dL (7-20) Creatinine 0.9 mg/dL (0.6-1.0) Estimated GFR (Cockcroft-Gault) 75.1 Glucose Level 76 mg/dL (70-99) Calcium Level 9.6 mg/dL (8.5-10.1) Medications Current Medications Bacitracin 79911 unit/Sodium Chloride 250 ml @ 250 mls/hr 1X ONCE IRR ; Start 07/04/18 at 14:00; Stop 07/04/18 at 14:59; Status DC Lidocaine/ Epinephrine (LIDOCAINE 2%-EPI 1:100,000 multi-dose) 20 ml STK-MED ONCE .ROUTE ; Start 07/04/18 at 14:17; Stop 07/04/18 at 14:18; Status DC Lidocaine HCl (Xylocaine 1% Pf 30ml Vial) 30 ml STK-MED ONCE .ROUTE ; Start at 14:31; Stop 07/04/18 at 14:32; Status DC Midazolam HCl (Versed) 2 mg STK-MED ONCE .ROUTE ; Start 07/04/18 at 14:34; Stop 07/04/18 at 14:35; Status DC Vancomycin HCl 250 ml @ As Directed STK-MED ONCE .ROUTE ; Start 07/04/18 at 14: 34; Stop 07/04/18 at 14:35; Status DC Midazolam HCl (Versed) 2 mg STK-MED ONCE .ROUTE ; Start 07/04/18 at 15:07; Stop 07/04/18 at 15:08; Status DC Midazolam HCl (Versed) 2 mg 1X ONCE IV Last administered on 07/04/18at 15:30; Start 07/04/18 at 15:30; Stop 07/04/18 at 15:31; Status DC Lidocaine/ Epinephrine (LIDOCAINE 2%-EPI 1:100,000 multi-dose) 20 ml 1X ONCE IJ Last administered on 07/04/18at 15:30; Start 07/04/18 at 15:30; Stop at 15:31; Status DC Lidocaine HCl 20 ml 1X ONCE IJ Last administered on 07/04/18at 15:30; Start at 15:30; Stop 07/04/18 at 15:31; Status DC Midazolam HCl (Versed) 2 mg STK-MED ONCE .ROUTE ; Start 07/04/18 at 15:30; Stop 07/04/18 at 15:31; Status DC Vancomycin HCl 250 ml @ 250 mls/hr 1X ONCE IV Last administered on 07/04/18at 15:44; Start 07/04/18 at 15:45; Stop 07/04/18 at 16:44; Status DC Midazolam HCl (Versed) 2 mg STK-MED ONCE .ROUTE ; Start 07/04/18 at 16:10; Stop 07/04/18 at 16:11; Status DC Midazolam HCl (Versed) 2 mg 1X ONCE IV Last administered on 07/04/18at 16:22; Start 07/04/18 at 16:30; Stop 07/04/18 at 16:31; Status DC Info (No Anticoagulant Therapy) 1 ea CONT PRN PRN MC PER PROTOCOL; Start at 16:45 Zolpidem Tartrate (Ambien) 5 mg PRN QHS PRN PO INSOMNIA Last administered on at 23:10; Start 07/04/18 at 16:45 Acetaminophen/ Hydrocodone Bitart (Lortab 5/325) 2 tab PRN Q4HRS PRN PO MODERATE PAIN Last administered on 07/05/18at 05:23; Start 07/04/18 at 16:45 Alprazolam (Xanax) 0.5 mg PRN Q6HRS PRN PO ANXIETY / AGITATION Last administered on 07/05/18at 07:12; Start 07/04/18 at 16:45 Cyclobenzaprine HCl (Flexeril) 10 mg PRN Q6HRS PRN PO MUSCLE SPASMS Last administered on 07/05/18at 07:12; Start 07/04/18 at 16:45 Ondansetron HCl (Zofran Odt) 4 mg PRN Q6HRS PRN PO NAUSEA/VOMITING; Start 07/04 at 18:30; Stop 07/04/18 at 18:32; Status DC Ondansetron HCl (Zofran Odt) 8 mg PRN Q6HRS PRN PO NAUSEA/VOMITING Last administered on 07/04/18at 18:38; Start 07/04/18 at 18:45 Hydromorphone HCl (Dilaudid) 2 mg PRN Q6HRS PRN PO SEVERE PAIN Last administered on 07/05/18at 08:12; Start 07/05/18 at 08:15 Active Scripts Active Zyrtec (Cetirizine Hcl) 10 Mg Tablet 1 Tab PO DAILY Proair Respiclick (Albuterol Sulfate) 90 Mcg Aer.pow.ba 1 Puff IH PRN Q6HRS PRN Tessalon Perle (Benzonatate) 100 Mg Capsule 1 Cap PO TID Prednisone 50 Mg Tablet 1 Tab PO DAILY [place] 5-325 Tablet (Acetaminophen/Hydrocodone Bitart) 1 Each Tablet 1-2 Tab PO Q4-6HRS Cipro (Ciprofloxacin Hcl) 500 Mg Tablet 1 Tab PO BID Mucinex (Guaifenesin) 600 Mg Tablet.er 1 Tab PO BID Prednisone 20 Mg Tablet 2 Tab PO DAILY 5 Days Bactrim Ds Tablet (Sulfamethoxazole/Trimethoprim) 1 Each Tablet 1 Tab PO BID Prednisone 20 Mg Tablet 2 Tab PO DAILY Cipro (Ciprofloxacin Hcl) 500 Mg Tablet 1 Tab PO BID Zofran (Ondansetron Hcl) 4 Mg Tablet 4 Mg PO BID PRN Oxycontin (Oxycodone HCl) 15 Mg Tab.er.12h 30 Mg PO Q12HR Reported Albuterol Sulfate Neb Soln (Albuterol Sulfate) 0.63 Mg/3 Ml Vial.neb 1 Vial NEB QID PRN Atrovent Hfa (Ipratropium [place]) 12.9 Gm Hfa.aer.ad 2 Puff IH BID [quvar] 3 Puff INH DAILY Prazosin Hcl 5 Mg Capsule 2 Cap PO QHS Zafirlukast 20 Mg Tablet 20 Mg PO BID Nexium 24Hr (Esomeprazole Magnesium) 20 Mg Capsule.dr 40 Mg PO DAILY Sotalol (Sotalol Hcl) 160 Mg Tablet 160 Mg PO BID Zohydro ER (Hydrocodone Bitartrate) 10 Mg Cap.er.12h 10 Mg PO Q12HR PRN Vyvanse (Lisdexamfetamine Dimesylate) 60 Mg Capsule 1 Cap PO DAILY Digoxin 125 Mcg Tablet 1 Tab PO DAILY Benadryl (Diphenhydramine Hcl) 25 Mg Capsule 50 Mg PO Q6HRS PRN Xanax (Alprazolam) 0.5 Mg Tablet 1 Tab PO QID Lyrica (Pregabalin) 100 Mg Capsule 200 Mg PO BID 30 Days Albuterol Sulfate Hfa Inhaler (Albuterol Sulfate) 8.5 Gm Hfa.aer.ad 2 Puff INH QID PRN Flonase (Fluticasone Propionate) 16 Gm Ten Sleep.susp 2 Ten Sleep NS DAILY Lexapro (Escitalopram Oxalate) 20 Mg Tablet 2 Tab PO DAILY Cyclobenzaprine Hcl 10 Mg Tablet 10 Mg PO TID Vitals/I & O Vital Sign - Last 24 Hours 07/04/18 07/04/18 07/04/18 07/04/18 13:15 14:15 15:54 16:30 Temp 97.7 97.7 Pulse 69 79 61 Resp 20 20 B/P (MAP) 115/57 (76) 118/58 (78) Pulse Ox 100 92 O2 Delivery Room Air Room Air Room Air 07/04/18 07/04/18 07/04/18 07/04/18 16:40 16:45 16:45 16:55 Temp 98.1 98.1 Pulse 68 76 Resp 18 B/P (MAP) 118/58 (78) 128/72 (90) Pulse Ox 100 O2 Delivery Room Air Room Air Room Air 07/04/18 07/04/18 07/04/18 07/04/18 17:00 17:15 17:30 18:00 Pulse 64 64 68 B/P (MAP) 109/55 (73) 114/59 (77) 107/55 (72) 109/49 (69) 07/04/18 07/04/18 07/04/18 07/04/18 18:57 19:49 21:56 23:21 Temp 98.9 98.1 98.9 98.1 Pulse 68 67 Resp 14 16 16 B/P (MAP) 119/49 (72) 114/56 (75) Pulse Ox 100 95 O2 Delivery Room Air Room Air Room Air Room Air 07/05/18 07/05/18 07/05/18 07/05/18 02:24 05:23 06:27 07:20 Temp 98.2 97.7 98.2 97.7 Pulse 65 62 Resp 16 16 16 20 B/P (MAP) 100/56 (71) 108/58 (75) Pulse Ox 95 97 O2 Delivery Room Air Room Air Room Air Room Air 07/05/18 07/05/18 07/05/18 07/05/18 08:00 08:12 09:58 11:40 Temp 97.7 97.7 Pulse 60 Resp 18 16 16 B/P (MAP) 92/47 (62) Pulse Ox 97 97 98 O2 Delivery Room Air Room Air Room Air Room Air Intake and Output 07/04/18 07/04/18 07/05/18 15:00 23:00 07:00 Intake Total 500 ml Balance 500 ml JOSE LAUREN MD Jul 05, 2018 12:06
[2018-07-05] MEDS: ONDANSETRON ODT 4 MG TAB.RAPDIS. PO PRN ×2 (13:24→19:36)
[2018-07-05 15:30] VITALS: BP 110/56
[2018-07-05 19:20] VITALS: BP 110/56
[2018-07-05 23:25] VITALS: BP 114/57
[2018-07-06] VITALS (7 sets, daily range): BP systolic 95–124; BP diastolic 47–60
[2018-07-06] MEDS: HYDROcodone/APAP 5/325MG 1 TAB TABLET PO PRN ×4 (03:15→22:26)
[2018-07-06] MEDS: HYDROmorphone 2 MG TABLET PO PRN ×3 (07:24→20:45)
[2018-07-06] MEDS: CYCLOBENZAPRINE 10 MG TABLET. PO PRN ×3 (07:24→20:45)
[2018-07-06] MEDS: ALPRAZolam 0.5 MG TABLET PO PRN ×3 (09:48→22:26)
[2018-07-06] MEDS: ONDANSETRON ODT 4 MG TAB.RAPDIS. PO PRN ×2 (09:48→17:42)
[2018-07-06] MEDS: methylPREDNISolone 4 MG TABLET. PO SCH ×4 (14:05→20:45)
[2018-07-06] MEDS: valACYclovir 500 MG TABLET. PO SCH (14:06)
--- NOTE | 2018-07-06 15:09 | PDOC ---
PROGRESS NOTES Subjective Subjective Patient is crying and complaining of excruciating pain. She is also complaining of a lot of itching and states that she feels like when she has her shingles flare ups and that they usually happen when she is stressed Objective Objective Vital Signs Date Time Temp Pulse Resp B/P (MAP) Pulse Ox O2 Delivery O2 Flow Rate FiO2 07/06/18 14:06 18 Room Air 07/06/18 11:00 98.1 64 98/47 (64) 98 98.1 Intake and Output 07/06/18 07:00 Intake Total 900 ml Balance 900 ml Intake Oral 900 ml # Voids 5 Physical Exam Physical Exam No changes in cardiac exam Assessment Assessment Patient with poorly controlled pain that may be having a shingles flareup. I will consult infectious disease and see what they would recommend with regards to the patient having shingles. Possible discharge in a.m. Comment Review of Relevant I have reviewed the following items rolando (where applicable) has been applied. Medications Current Medications Bacitracin 36743 unit/Sodium Chloride 250 ml @ 250 mls/hr 1X ONCE IRR ; Start 07/04/18 at 14:00; Stop 07/04/18 at 14:59; Status DC Lidocaine/ Epinephrine (LIDOCAINE 2%-EPI 1:100,000 multi-dose) 20 ml STK-MED ONCE .ROUTE ; Start 07/04/18 at 14:17; Stop 07/04/18 at 14:18; Status DC Lidocaine HCl (Xylocaine 1% Pf 30ml Vial) 30 ml STK-MED ONCE .ROUTE ; Start at 14:31; Stop 07/04/18 at 14:32; Status DC Midazolam HCl (Versed) 2 mg STK-MED ONCE .ROUTE ; Start 07/04/18 at 14:34; Stop 07/04/18 at 14:35; Status DC Vancomycin HCl 250 ml @ As Directed STK-MED ONCE .ROUTE ; Start 07/04/18 at 14: 34; Stop 07/04/18 at 14:35; Status DC Midazolam HCl (Versed) 2 mg STK-MED ONCE .ROUTE ; Start 07/04/18 at 15:07; Stop 07/04/18 at 15:08; Status DC Midazolam HCl (Versed) 2 mg 1X ONCE IV Last administered on 07/04/18at 15:30; Start 07/04/18 at 15:30; Stop 07/04/18 at 15:31; Status DC Lidocaine/ Epinephrine (LIDOCAINE 2%-EPI 1:100,000 multi-dose) 20 ml 1X ONCE IJ Last administered on 07/04/18at 15:30; Start 07/04/18 at 15:30; Stop at 15:31; Status DC Lidocaine HCl 20 ml 1X ONCE IJ Last administered on 07/04/18at 15:30; Start at 15:30; Stop 07/04/18 at 15:31; Status DC Midazolam HCl (Versed) 2 mg STK-MED ONCE .ROUTE ; Start 07/04/18 at 15:30; Stop 07/04/18 at 15:31; Status DC Vancomycin HCl 250 ml @ 250 mls/hr 1X ONCE IV Last administered on 07/04/18at 15:44; Start 07/04/18 at 15:45; Stop 07/04/18 at 16:44; Status DC Midazolam HCl (Versed) 2 mg STK-MED ONCE .ROUTE ; Start 07/04/18 at 16:10; Stop 07/04/18 at 16:11; Status DC Midazolam HCl (Versed) 2 mg 1X ONCE IV Last administered on 07/04/18at 16:22; Start 07/04/18 at 16:30; Stop 07/04/18 at 16:31; Status DC Info (No Anticoagulant Therapy) 1 ea CONT PRN PRN MC PER PROTOCOL; Start at 16:45 Zolpidem Tartrate (Ambien) 5 mg PRN QHS PRN PO INSOMNIA Last administered on at 23:10; Start 07/04/18 at 16:45 Acetaminophen/ Hydrocodone Bitart (Lortab 5/325) 2 tab PRN Q4HRS PRN PO MODERATE PAIN Last administered on 07/06/18at 09:50; Start 07/04/18 at 16:45 Alprazolam (Xanax) 0.5 mg PRN Q6HRS PRN PO ANXIETY / AGITATION Last administered on 07/06/18at 09:48; Start 07/04/18 at 16:45 Cyclobenzaprine HCl (Flexeril) 10 mg PRN Q6HRS PRN PO MUSCLE SPASMS Last administered on 07/06/18at 14:06; Start 07/04/18 at 16:45 Ondansetron HCl (Zofran Odt) 4 mg PRN Q6HRS PRN PO NAUSEA/VOMITING; Start 07/04 at 18:30; Stop 07/04/18 at 18:32; Status DC Ondansetron HCl (Zofran Odt) 8 mg PRN Q6HRS PRN PO NAUSEA/VOMITING Last administered on 07/06/18at 09:48; Start 07/04/18 at 18:45 Hydromorphone HCl (Dilaudid) 2 mg PRN Q6HRS PRN PO SEVERE PAIN Last administered on 07/06/18at 14:06; Start 07/05/18 at 08:15 Methylprednisolone (Medrol) 8 mg BID PO Last administered on 07/06/18at 14:05; Start 07/06/18 at 14:30; Stop 07/06/18 at 21:01 Methylprednisolone (Medrol) 4 mg BIDPCLD PO Last administered on 07/06/18at 14: 08; Start 07/06/18 at 14:30; Stop 07/06/18 at 17:31 Methylprednisolone (Medrol) 4 mg TIDPC PO ; Start 07/07/18 at 08:30; Stop at 17:31 Methylprednisolone (Medrol) 8 mg QHS PO ; Start 07/07/18 at 21:00; Stop at 21:01 Methylprednisolone (Medrol) 4 mg QIDAFTMEAL PO ; Start 07/08/18 at 09:00; Stop 07/08/18 at 21:01 Methylprednisolone (Medrol) 4 mg TID PO ; Start 07/09/18 at 09:00; Stop at 21:01 Methylprednisolone (Medrol) 4 mg BID PO ; Start 07/10/18 at 09:00; Stop at 21:01 Methylprednisolone (Medrol) 4 mg DAILY PO ; Start 07/11/18 at 09:00; Stop at 09:01 Valacyclovir HCl (Valtrex) 500 mg DAILY PO Last administered on 07/06/18at 14:06 ; Start 07/06/18 at 14:30 Active Scripts Active Zyrtec (Cetirizine Hcl) 10 Mg Tablet 1 Tab PO DAILY Proair Respiclick (Albuterol Sulfate) 90 Mcg Aer.pow.ba 1 Puff IH PRN Q6HRS PRN Tessalon Perle (Benzonatate) 100 Mg Capsule 1 Cap PO TID Prednisone 50 Mg Tablet 1 Tab PO DAILY [place] 5-325 Tablet (Acetaminophen/Hydrocodone Bitart) 1 Each Tablet 1-2 Tab PO Q4-6HRS Cipro (Ciprofloxacin Hcl) 500 Mg Tablet 1 Tab PO BID Mucinex (Guaifenesin) 600 Mg Tablet.er 1 Tab PO BID Prednisone 20 Mg Tablet 2 Tab PO DAILY 5 Days Bactrim Ds Tablet (Sulfamethoxazole/Trimethoprim) 1 Each Tablet 1 Tab PO BID Prednisone 20 Mg Tablet 2 Tab PO DAILY Cipro (Ciprofloxacin Hcl) 500 Mg Tablet 1 Tab PO BID Zofran (Ondansetron Hcl) 4 Mg Tablet 4 Mg PO BID PRN Oxycontin (Oxycodone HCl) 15 Mg Tab.er.12h 30 Mg PO Q12HR Reported Albuterol Sulfate Neb Soln (Albuterol Sulfate) 0.63 Mg/3 Ml Vial.neb 1 Vial NEB QID PRN Atrovent Hfa (Ipratropium [place]) 12.9 Gm Hfa.aer.ad 2 Puff IH BID [quvar] 3 Puff INH DAILY Prazosin Hcl 5 Mg Capsule 2 Cap PO QHS Zafirlukast 20 Mg Tablet 20 Mg PO BID Nexium 24Hr (Esomeprazole Magnesium) 20 Mg Capsule.dr 40 Mg PO DAILY Sotalol (Sotalol Hcl) 160 Mg Tablet 160 Mg PO BID Zohydro ER (Hydrocodone Bitartrate) 10 Mg Cap.er.12h 10 Mg PO Q12HR PRN Vyvanse (Lisdexamfetamine Dimesylate) 60 Mg Capsule 1 Cap PO DAILY Digoxin 125 Mcg Tablet 1 Tab PO DAILY Benadryl (Diphenhydramine Hcl) 25 Mg Capsule 50 Mg PO Q6HRS PRN Xanax (Alprazolam) 0.5 Mg Tablet 1 Tab PO QID Lyrica (Pregabalin) 100 Mg Capsule 200 Mg PO BID 30 Days Albuterol Sulfate Hfa Inhaler (Albuterol Sulfate) 8.5 Gm Hfa.aer.ad 2 Puff INH QID PRN Flonase (Fluticasone Propionate) 16 Gm Valentines.susp 2 Valentines NS DAILY Lexapro (Escitalopram Oxalate) 20 Mg Tablet 2 Tab PO DAILY Cyclobenzaprine Hcl 10 Mg Tablet 10 Mg PO TID Vitals/I & O Vital Sign - Last 24 Hours 07/05/18 07/05/18 07/05/18 07/05/18 15:30 16:13 16:14 17:29 Temp 97.9 97.9 Pulse 65 Resp 18 18 B/P (MAP) 110/56 (74) Pulse Ox 98 98 98 98 O2 Delivery Room Air Room Air 07/05/18 07/05/18 07/05/18 07/05/18 19:20 19:31 19:51 22:31 Temp 98.3 98.3 Pulse 66 Resp 19 16 16 B/P (MAP) 110/56 (74) Pulse Ox 97 O2 Delivery Room Air Room Air Room Air Room Air 07/05/18 07/06/18 07/06/18 07/06/18 23:25 03:15 03:36 07:24 Temp 98.0 98.1 98.0 98.1 Pulse 61 60 Resp 18 16 18 18 B/P (MAP) 114/57 (76) 124/60 (81) Pulse Ox 96 97 O2 Delivery Room Air Room Air Room Air Room Air 07/06/18 07/06/18 07/06/18 07/06/18 07:25 08:01 08:30 09:50 Temp 98.1 98.1 Pulse 70 Resp 16 18 18 B/P (MAP) 104/56 (72) Pulse Ox 97 O2 Delivery Room Air Room Air Room Air Room Air 07/06/18 07/06/18 07/06/18 10:55 11:00 14:06 Temp 98.1 98.1 Pulse 64 Resp 18 16 18 B/P (MAP) 98/47 (64) Pulse Ox 98 O2 Delivery Room Air Room Air Room Air Intake and Output 07/05/18 07/05/18 07/06/18 15:00 23:00 07:00 Intake Total 600 ml 300 ml Balance 600 ml 300 ml JOSE LAUREN MD Jul 06, 2018 15:09
[2018-07-07 03:47] VITALS: BP 127/55
[2018-07-07] MEDS: CYCLOBENZAPRINE 10 MG TABLET. PO PRN ×2 (03:47→10:56)
[2018-07-07] MEDS: HYDROmorphone 2 MG TABLET PO PRN ×2 (03:51→10:56)
[2018-07-07 07:00] VITALS: BP 136/70
[2018-07-07] MEDS: ALPRAZolam 0.5 MG TABLET PO PRN (08:25)
[2018-07-07] MEDS: valACYclovir 500 MG TABLET. PO SCH (08:25)
[2018-07-07] MEDS: methylPREDNISolone 4 MG TABLET. PO SCH ×2 (08:25→12:30)
[2018-07-07] MEDS: HYDROcodone/APAP 5/325MG 1 TAB TABLET PO PRN (08:26)
--- NOTE | 2018-07-07 09:11 | PDOC ---
Infectious Disease Note Vital Sign Vital Signs Vital Signs Date Time Temp Pulse Resp B/P (MAP) Pulse Ox O2 Delivery O2 Flow Rate FiO2 07/07/18 08:26 20 98 Room Air 07/07/18 07:00 98.0 68 136/70 (92) 98.0 Objective Assessment Pacemaker revision H/O Shingles long time ago, no evidence of active lesion Plan Plan of Care no need for antiviral ok to d/c from ID stand point VINCENT FERRELL MD Jul 07, 2018 09:11
[2018-07-07 10:35] VITALS: BP 129/71
--- NOTE | 2018-07-07 17:40 | CONS ---
DATE OF CONSULTATION: 07/07/2018 REQUESTING PHYSICIAN: Dr. Corona. REASON FOR CONSULTATION: Question herpes zoster. HISTORY OF PRESENT ILLNESS: This is a 28-year-old female who has had pacemaker was riding much higher on the chest, hence a revision was done to reposition the pacemaker. It was not exposed. The patient has no fever. The patient has not had any other problem. The patient though still ____ that has been done, now the question is whether she has shingles or not. The patient says she gets breakout of shingles whenever she is in distress and Dr. Corona wanted me to check out the need for antivirals. PAST MEDICAL HISTORY: Positive for pacemaker in place. The patient has had shingles when she was 19 years old she says and she says "that she breaks out afterwards." The patient also has gastroparesis. SOCIAL HISTORY: Negative for smoking, alcohol, illicit drug use. ALLERGIES: She has multiple medication allergies. REVIEW OF SYSTEMS: As per HPI, all other systems reviewed are negative. CURRENT MEDICATIONS: The patient is on acyclovir, on steroids, Xanax, Flexeril and hydrocodone. PHYSICAL EXAMINATION: GENERAL: Alert and oriented female, not in distress. VITAL SIGNS: Stable, afebrile. HEENT: NAD. NECK: Supple, no JVP, no lymphadenopathy. LUNGS: Clear. HEART: S1, S2 regular. ABDOMEN: Benign. EXTREMITIES: No edema, cyanosis. SKIN: Unremarkable. The patient does have scar in the dermatomal distribution that her original shingles were. She has one area of skin breakdown, which is not shingles, it is scratching and opening the skin. There is no evidence for shingles now or active lesions. NEUROLOGIC: The patient is neurologically intact. LABORATORY DATA: White count is normal. BUN and creatinine is normal. IMPRESSION: 1. Pacemaker revision. 2. History of shingles long time ago, no evidence for active infection. RECOMMENDATIONS: No need for antiviral. Okay to discharge from ID standpoint of view. Thank you very much, Dr. Corona, for giving me the opportunity to participate in this patient's care. VINCENT FERRELL MD DR: WILL/chelo JOB#: [id number] / [id number]
[2018-07-07] MEDS ORDERED: methylPREDNISolone 4 MG TABLET. PO SCH (21:00)
[2018-07-08] MEDS ORDERED: methylPREDNISolone 4 MG TABLET. PO SCH (09:00)
[2018-07-09] MEDS ORDERED: methylPREDNISolone 4 MG TABLET. PO SCH (09:00)
[2018-07-10] MEDS ORDERED: methylPREDNISolone 4 MG TABLET. PO SCH (09:00)
[2018-07-11] MEDS ORDERED: methylPREDNISolone 4 MG TABLET. PO SCH (09:00)
== END 2018-07-07 13:30 | disposition home or self-care (01) ==
LOC: CCL 12:47 → 2 NORTH 14:31 → EEVIPCON 14:31
PROVIDERS: ADMIT Internal Medicine Cardiovascular Disease; ATTEND Internal Medicine Cardiovascular Disease
DX: T82.897A Other specified complication of cardiac prosthetic devices, implants and grafts, initial encounter (principal); E66.3 Overweight; B02.9 Zoster without complications; K31.84 Gastroparesis; Z86.19 Personal history of other infectious and parasitic diseases; Z95.0 Presence of cardiac pacemaker; Z23 Encounter for immunization; Z88.0 Allergy status to penicillin
CPT/HCPCS: 33222; 36415; 80048; 85027; 85610; 90471; 90756; 96365; 96375; 96376; C1892; G0378; G0379; J2001; J2250; J3370; J3490; J7509; Q0162; 33223; 99152; 99153; Q2035

== ENCOUNTER → 2018-10-30 | Outpatient (CLI) | payer OTHER ==
[~2018-10-30] MED LIST changes: +HYDR-3135 PO; +HYDR-3164 PO; -HYDR-963 PO; -HYDR-971 PO; -OXYC15TA60 PO; +OXYC15TA61 PO
--- NOTE | 2018-10-30 09:55 | CARD ---
MR#: [id number] Date of Study: 10/30/2018 Ordering Physician: SARAH TALLEY, Referring Physician: GABBY TIDWELL, Tech: Rebeca Quintanilla [facility] APPROVED REPORT EXAM: Two-dimensional and M-mode echocardiogram with Doppler and color Doppler. Other Information Quality : GoodHR: 60bpm Rhythm : NSR INDICATION Cardiomyopathy 2D DIMENSIONS RVDd3.2 (2.9-3.5cm)Left Atrium(2D)4.1 (1.6-4.0cm) IVSd0.9 (0.7-1.1cm)Aortic Root(2D)3.1 (2.0-3.7cm) LVDd4.9 (3.9-5.9cm)LVOT Diameter2.1 (1.8-2.4cm) PWd1.0 (0.7-1.1cm)LVDs3.1 (2.5-4.0cm) FS (%) 36.9 %SV75.7 ml LVEF(%)66.6 (>50%) M-Mode DIMENSIONS Left Atrium(MM)3.33 (2.5-4.0cm)Aortic Root2.91 (2.2-3.7cm) Aortic Valve AoV Peak Evert.132.5cm/sAoV VTI31.3cm AO Peak GR.7.0mmHgLVOT Peak Evert.110.1cm/s AO Mean GR.4mmHgAVA (VMAX)2.77cm2 SYLVIE (VTI)2.80cm2 Mitral Valve MV E Etqhcufm77.7cm/sMV DECEL CXLV793mz MV A Cppnhepd10.3cm/sE/A Ratio1.9 MV A [id number] Pulmonary Valve PV Peak Brecdrpm958.3cm/s Tricuspid Valve TR P. Ybqoypcl437wu/sRAP VFVXUCVZ0jxNt TR Peak Gr.44piChFCPN27chBp Pulmonary Vein S1 Ucmqlxyz37.2cm/sD2 Zvnodupr40.0cm/s PVa [id number] LEFT VENTRICLE The left ventricle is normal size. There is normal left ventricular wall thickness. The left ventricu lar systolic function is normal and the ejection fraction is within normal range. The Ejection Fracti on is 60-65%. There is normal LV segmental wall motion. The left ventricular diastolic function and f illing is normal for age. RIGHT VENTRICLE The right ventricle is normal size. There is normal right ventricular wall thickness. The right ventr icular systolic function is normal. Pacer lead noted in RV/RA. ATRIA The left atrium is borderline dilated. The right atrium size is normal. The interatrial septum is int act with no evidence for an atrial septal defect or patent foramen ovale as noted on 2-D or Doppler i maging. AORTIC VALVE The aortic valve is normal in structure and function. The aortic valve is trileaflet. Doppler and Col or Flow revealed no significant aortic regurgitation. There is no significant aortic valvular stenosi s. MITRAL VALVE The mitral valve is normal in structure and function. There is no evidence of mitral valve prolapse. There is no mitral valve stenosis. Doppler and Color-flow revealed trace mitral regurgitation. TRICUSPID VALVE The tricuspid valve is normal in structure and function. Doppler and Color Flow revealed mild tricusp id regurgitation. The PA pressure was estimated at 30 mmHg. There is no tricuspid valve prolapse or v egetation. There is no tricuspid valve stenosis. PULMONIC VALVE Doppler and Color Flow revealed trace pulmonic valvular regurgitation. There is no pulmonic valvular stenosis. GREAT VESSELS The aortic root is normal in size. The ascending aorta is normal in size. The IVC is normal in size a nd collapses >50% with inspiration. PERICARDIAL EFFUSION There is no evidence of significant pericardial effusion. Critical Notification Critical Value: No <Conclusion> The left ventricular systolic function is normal and the ejection fraction is within normal range. Th e Ejection Fraction is 60-65%. There is normal LV segmental wall motion. Pacer lead noted in RV/RA. Doppler and Color Flow revealed mild tricuspid regurgitation. The PA pressure was estimated at 30 mmH g. Signed by : Gabby Tidwell, Electronically Approved : 10/30/2018 09:53:54
[2018-10-30 10:03] LABS: ALBUMIN 3.8 g/dL (3.4-5.0); ALBUMIN/GLOBULIN RATIO 1.1 (1.0-1.7); CALCIUM 9.2 mg/dL (8.5-10.1); GFR 66.5; MAGNESIUM 1.9 mg/dL (1.8-2.4); POTASSIUM 4.3 mmol/L (3.5-5.1); TOTAL BILIRUBIN 0.4 mg/dL (0.2-1.0); TOTAL PROTEIN 7.3 g/dL (6.4-8.2)
== END | disposition home or self-care (01) ==
LOC: ECHO 08:44
PROVIDERS: ATTEND Internal Medicine Cardiovascular Disease
DX: I36.1 Nonrheumatic tricuspid (valve) insufficiency (principal); Z95.0 Presence of cardiac pacemaker
CPT/HCPCS: 36415; 80053; 83735; 93306

== ENCOUNTER → 2019-03-31 | Day surgery (SDC) | payer OTHER ==
[~2019-03-31] MED LIST changes: +CLON0.5T PO; +ESOM40CA PO; +IV RINGERS,LACTATED 1000ML 1,000 ML IV SCH; +LURA40TA PO; +MEPERIDINE PF 25 MG/ML VIAL. IV ONE; +MEPERIDINE PF 25 MG/ML VIAL. ONE; +METO10TA81 PO; +MIDAZOLAM HCL/PF 5 MG/5 ML VIAL. IV ONE; +MIDAZOLAM HCL/PF 5 MG/5 ML VIAL. ONE; +TRAM50TA PO; +diphenhydrAMINE 50 MG/ML VIAL IV ONE; +diphenhydrAMINE 50 MG/ML VIAL ONE
[2019-03-31 15:56] LABS: U PREG PATIENT NEGATIVE (NEG)
[2019-03-31 16:46] VITALS: BP 102/56
== END ==
LOC: ENDOS 15:19
PROVIDERS: ATTEND Internal Medicine Gastroenterology
DX: K29.50 Unspecified chronic gastritis without bleeding (principal); K21.9 Gastro-esophageal reflux disease without esophagitis; F41.9 Anxiety disorder, unspecified; J45.909 Unspecified asthma, uncomplicated; F15.90 Other stimulant use, unspecified, uncomplicated; I50.9 Heart failure, unspecified; F32.9 Major depressive disorder, single episode, unspecified; Z88.8 Allergy status to other drugs, medicaments and biological substances; Z88.6 Allergy status to analgesic agent; Z88.1 Allergy status to other antibiotic agents; Z88.0 Allergy status to penicillin; Z91.013 Allergy to seafood; Z95.0 Presence of cardiac pacemaker; Z98.890 Other specified postprocedural states; Z87.891 Personal history of nicotine dependence
CPT/HCPCS: 43235; 81025; J1200; J2175; J2250; G0500

== ENCOUNTER 2019-05-17 08:16 | Emergency (ER) | payer SELFPAY ==
[~2019-05-17] VITALS: Ht 170.2 cm; Wt 113.4 kg
[~2019-05-17 08:16] MED LIST changes: -IV RINGERS,LACTATED 1000ML 1,000 ML IV SCH; -MEPERIDINE PF 25 MG/ML VIAL. IV ONE; -MEPERIDINE PF 25 MG/ML VIAL. ONE; -MIDAZOLAM HCL/PF 5 MG/5 ML VIAL. IV ONE; -MIDAZOLAM HCL/PF 5 MG/5 ML VIAL. ONE; -diphenhydrAMINE 50 MG/ML VIAL IV ONE; -diphenhydrAMINE 50 MG/ML VIAL ONE
[2019-05-17 09:00] VITALS: BP 154/92
[2019-05-17 09:47] LABS: BILIRUBIN,URINE NEGATIVE (NEG); CLARITY,URINE CLEAR; COLOR,URINE YELLOW; NITRITE,URINE NEGATIVE (NEG); PROTEIN,URINE NEGATIVE (NEG-TRACE); UROBILINOGEN,URINE 0.2 mg/dL (0.2 mg/dL)
[2019-05-17 10:16] LABS: BACTERIA,URINE 0 /HPF (0-FEW); RBC,URINE 0 /HPF (0-2); SQUAMOUS EPITHELIAL CELL,UR FEW /LPF; WBC,URINE OCC /HPF (0-4)
[2019-05-17] MEDS ORDERED: METR500T PO (10:46)
[2019-05-17] MEDS ORDERED: NAPR-683 PO (10:48)
--- NOTE | 2019-05-17 10:48 | PHYS DOC ---
Past Medical History Past Medical History: Anxiety, Asthma, Bipolar, Depression, GERD, Hypotension, Other Additional Past Medical Histor: ADHD, BRADYCARDIA, POC, PTSD, shingles, sick sinus syndrome Past Surgical History: Appendectomy, Cholecystectomy, , Pacemaker, Tonsillectomy, Other Additional Past Surgical Histo: (R) KNEE REPAIR Alcohol Use: None Drug Use: Marijuana Adult General Chief Complaint Chief Complaint: SEXUALLY TRANSMITTED DISEASE HPI HPI Patient is a 29 year old female who presents with complaining of abdominal pain and vaginal discharge. Patient states she has had left lower quadrant constant pain for almost 2 months and seen by her RAG WILLOW OPERATOR about 1 month ago and had Pap smear and STD check that she recently has itching and discharge and concern for possible STD. Patient states the pain in left lower quadrant is an aching pain and rated her pain as a moderate pain. Patient denies nausea vomiting, fever and chills, , diarrhea and constipation. Review of Systems Review of Systems Constitutional: Denies fever or chills [] Eyes: Denies change in visual acuity, redness, or eye pain [] HENT: Denies nasal congestion or sore throat [] Respiratory: Denies cough or shortness of breath [] Cardiovascular: No additional information not addressed in HPI [] GI: Reports abdominal pain, denies nausea, vomiting, bloody stools or diarrhea [] : Denies dysuria or hematuria [] Musculoskeletal: Denies back pain or joint pain [] Integument: Denies rash or skin lesions [] Neurologic: Denies headache, focal weakness or sensory changes [] Endocrine: Denies polyuria or polydipsia [] All other systems were reviewed and found to be within normal limits, except as documented in this note. Allergies Allergies Allergies Coded Allergies Type Severity Reaction Last Updated Verified Cephalosporins Allergy Severe 03/31/19 Yes Penicillins Allergy Severe Anaphylaxis 03/31/19 Yes chicken derived Allergy Severe ANAPHYLAXIS 03/31/19 Yes propofol Allergy Severe 03/31/19 Yes acyclovir Allergy Intermediate abdominal pain 03/31/19 Yes aspirin Allergy Intermediate 03/31/19 Yes azithromycin Allergy Intermediate Itching 02/28/18 Yes bupropion HCl Allergy Intermediate tachycardia 04/25/15 Yes buspirone Allergy Intermediate 03/31/19 Yes cephalexin Allergy Intermediate Itching 07/18/14 Yes clarithromycin Allergy Intermediate "oral vescicles" 07/18/14 Yes doxycycline Allergy Intermediate Itching/facial swelling 07/18/14 Yes erythromycin base Allergy Intermediate Itching/pain 07/18/14 Yes fentanyl Allergy Intermediate Hives 07/18/14 Yes fluvoxamine maleate Allergy Intermediate Hives 07/18/14 Yes gabapentin Allergy Intermediate Hives 07/18/14 Yes honey Allergy Intermediate Itching 07/18/14 Yes iodine Allergy Intermediate 03/31/19 Yes levofloxacin Allergy Intermediate arthralgias, myalgias 07/18/14 Yes montelukast sodium Allergy Intermediate Nausea and Vomiting/headaches 07/18/14 Yes morphine Allergy Intermediate Itching, TOLERATES HYDROMORPHONE 07/24/14 Yes naproxen Allergy Intermediate 03/31/19 Yes pantoprazole Allergy Intermediate Swelling 03/07/15 Yes shrimp Allergy Intermediate Swelling 02/28/18 Yes trazodone Allergy Intermediate 07/24/14 Yes ziprasidone Allergy Intermediate 10/13/16 Yes Physical Exam Physical Exam Constitutional: Well developed, well nourished, mild distress, non-toxic appearance. [] HENT: Normocephalic, atraumatic. Eyes: PERRLA, EOMI, conjunctiva normal, no discharge. [] Neck: Normal range of motion, no tenderness, supple, no stridor. [] Cardiovascular:Heart rate regular rhythm, no murmur [] Lungs & Thorax: Bilateral breath sounds clear to auscultation [] Abdomen: Bowel sounds normal, soft, no tenderness, no masses, no pulsatile masses. Vaginal exam in present of vfx artist showed normal external genital, mild yellow discharge in cervix without cervical tenderness. Skin: Warm, dry, no erythema, no rash. [] Back: No tenderness, no CVA tenderness. [] Extremities: No tenderness, no cyanosis, no clubbing, ROM intact, no edema. [] Neurologic: Alert and oriented X 3, normal motor function, normal sensory function, no focal deficits noted. [] Psychologic: Affect anxious, judgement normal, mood normal. [] Current Patient Data Vital Signs Vital Signs Date Time Temp Pulse Resp B/P (MAP) Pulse Ox O2 Delivery O2 Flow Rate FiO2 05/17/19 09:00 98.0 18 18 154/92 (112) 98 Room Air 98.0 Lab Values Laboratory Tests Test 05/17/19 09:28 Urine Collection Type Unknown Urine Color Yellow Urine Clarity Clear Urine pH 6.0 Urine Specific [place] 1.015 Urine Protein Negative mg/dL (NEG-TRACE) Urine Glucose (UA) Negative mg/dL (NEG) Urine Ketones (Stick) Negative mg/dL (NEG) Urine Blood Negative (NEG) Urine Nitrite Negative (NEG) Urine Bilirubin Negative (NEG) Urine Urobilinogen Dipstick 0.2 mg/dL (0.2 mg/dL) Urine Leukocyte Esterase Trace (NEG) Urine RBC 0 /HPF (0-2) Urine WBC Occ /HPF (0-4) Urine Squamous Epithelial Cells Few /LPF Urine Bacteria 0 /HPF (0-FEW) POC Urine HCG, Qualitative Hcg negative (Negative) Microbiology 05/17/19 Wet Prep - Final, Complete EKG EKG [] Radiology/Procedures Radiology/Procedures [] Course & Med Decision Making Course & Med Decision Making Pertinent Labs reviewed. (See chart for details) discharge: I've spoken with the patient and/or caregivers. I've explained the patient's condition, diagnosis and treatment plan based on information available to me at this time. I've answered the patient's and/or caregivers questions and addressed any concerns. The patient and/or caregivers have a good understanding the patient's diagnosis, condition and treatment plan as can be expected at this point. Vital signs have been stabilized. The patient's condition is stable for discharge from the emergency department. The patient will pursue further outpatient evaluation with her primary care provider or other designated consulting physician as outlined in the discharge instructions. Patient and/or caregivers are agreeable to this plan of care and follow-up instructions have been explained in detail. The patient and/or caregivers have received these instructions in written format and expressed understanding of these discharge instructions. The patient and her caregivers are aware that if any significant change in condition or worsening of symptoms should prompt him to immediately return to this of the closest emergency department. If an emergent department is not readily available I would encourage him to call 911. [place] Disclaimer Dragon Disclaimer This electronic medical record was generated, in whole or in part, using a voice recognition dictation system. Departure Departure Impression: Primary Impression: Bacterial vaginitis Additional Impression: Chronic abdominal pain Disposition: HOME, SELF-CARE (at 1044) Condition: STABLE Referrals: TARYN OGDEN MD (PCP) Patient Instructions: Cervicitis Additional Instructions: Drink plenty of liquids Follow-up with your primary care physician in 3-5 days Return to ER if not getting better Scripts Naproxen (NAPROSYN) 500 Mg Tablet 1 TAB PO BID for pain, #20 TAB Prov: CINDY NOLAN MD 05/17/19 Metronidazole (FLAGYL) 500 Mg Tablet 1 TAB PO BID, #14 TAB Prov: CINDY NOLAN MD 05/17/19 Problem Qualifiers CINDY NOLAN MD May 17, 2019 10:48
[2019-05-19 18:11] LABS: GC PROBE Negative (Negative)
== END 2019-05-17 10:55 | disposition home or self-care (01) ==
LOC: ER 08:16
DX: N76.0 Acute vaginitis (principal); B96.89 Other specified bacterial agents as the cause of diseases classified elsewhere; G89.29 Other chronic pain; R10.32 Left lower quadrant pain; F41.9 Anxiety disorder, unspecified; J45.909 Unspecified asthma, uncomplicated; F31.9 Bipolar disorder, unspecified; K21.9 Gastro-esophageal reflux disease without esophagitis; Z90.89 Acquired absence of other organs; Z90.49 Acquired absence of other specified parts of digestive tract; Z98.890 Other specified postprocedural states; Z95.0 Presence of cardiac pacemaker; Z88.6 Allergy status to analgesic agent; Z88.4 Allergy status to anesthetic agent; Z88.1 Allergy status to other antibiotic agents; Z91.041 Radiographic dye allergy status; Z91.013 Allergy to seafood; Z88.8 Allergy status to other drugs, medicaments and biological substances; Z91.018 Allergy to other foods; Z88.0 Allergy status to penicillin
CPT/HCPCS: 81001; 81025; 87086; 87491; 87591; 99284; Q0111

== ENCOUNTER → 2019-12-07 | Outpatient (CLI) | payer OTHER ==
[~2019-12-07] MED LIST changes: -CETI10TA22 PO; +CETI10TA24 PO; -DIGO125T PO; +DIGO125T3 PO; +METR500T PO; +NAPR-683 PO
[2019-12-07 10:46] LABS: BASO % 1 % (0-3); EOS # 0.1 x10^3/uL (0.0-0.7); EOS % 1 % (0-3); HEMATOCRIT 40.9 % (36.0-47.0); HEMOGLOBIN 13.3 g/dL (12.0-15.5); LYMPH # 1.8 x10^3/uL (1.0-4.8); LYMPH % 21 % (24-48); MEAN CORPUSCULAR HEMOGLOBIN 28 pg (25-35); MEAN CORPUSCULAR HGB CONC 33 g/dL (31-37); MEAN CORPUSCULAR VOLUME 86 fL (79-100); MONO # 0.5 x10^3/uL (0.0-1.1); MONO % 5 % (0-9); NEUT # 6.1 x10^3/uL (1.8-7.7); NEUT % 72 % (31-73); PLATELET COUNT 237 x10^3/uL (140-400); RED BLOOD COUNT 4.77 x10^6/uL (3.50-5.40); RED CELL DISTRIBUTION WIDTH 15.2 % (11.5-14.5); WHITE BLOOD COUNT 8.4 x10^3/uL (4.0-11.0)
[2019-12-07 11:02] LABS: ALBUMIN 3.8 g/dL (3.4-5.0); ALBUMIN/GLOBULIN RATIO 1.1 (1.0-1.7); POTASSIUM 3.6 mmol/L (3.5-5.1); TOTAL BILIRUBIN 0.5 mg/dL (0.2-1.0); TOTAL PROTEIN 7.3 g/dL (6.4-8.2)
[2019-12-07 11:03] LABS: CHOLESTEROL/HDL RATIO 3.1
[2019-12-08 00:07] LABS: HEMOGLOBIN A1C 5.1 % (4.8-5.6)
== END ==
LOC: LAB 10:16
PROVIDERS: ATTEND Internal Medicine
DX: J40 Bronchitis, not specified as acute or chronic (principal)
CPT/HCPCS: 36415; 80053; 80061; 83036; 84443; 85025

== ENCOUNTER → 2019-12-11 | Outpatient (CLI) | payer OTHER ==
--- NOTE | 2019-12-11 17:36 | RAD ---
CHEST PA LATERAL, CLAVICLE LEFT History: Left-sided chest pain, pacemaker Comparison: 12/24/2015 Findings: 2 views of the chest are submitted. There is again dual lead left electronic cardiac device, although the device with different orientation on this exam than previously, now rotated more inferiorly. Leads are similar location. There is no dependent pleural fluid, pneumothorax, or lobar infiltrate. Heart size is stable, within normal limits. Impression: 1. There is again dual lead left electronic cardiac device although the device is now rotated inferiorly. Left clavicle FINDINGS: 2 views of left clavicle are submitted. No abnormality is identified by radiographs. IMPRESSION: 1. No abnormality is identified by radiographs. Electronically signed by: Osbaldo Ferreira MD (12/11/2019 5:33 PM) [id number]
== END | disposition home or self-care (01) ==
LOC: RAD 14:13
PROVIDERS: ATTEND Internal Medicine Cardiovascular Disease
DX: R07.89 Other chest pain (principal); Z95.0 Presence of cardiac pacemaker
CPT/HCPCS: 71046; 73000

== ENCOUNTER 2020-03-13 12:41 | Emergency (ER) | payer OTHER ==
[~2020-03-13] VITALS: Ht 154.9 cm; Wt 77.3 kg
[2020-03-13] MEDS ORDERED: IV NORMAL SALINE 1000ML BAG 1,000 ML IV ONE (13:15)
[2020-03-13] MEDS ORDERED: ONDANSETRON PF 4 MG/2 ML VIAL. IVP ONE (13:15)
[2020-03-13] MEDS ORDERED: fentaNYL PF VIAL 100 MCG/2 ML VIAL IVP ONE (13:15)
[2020-03-13] MEDS ORDERED: CLINDAMYCIN 600MG PREMIX 50 ML IV ONE (13:15)
[2020-03-13] MEDS ORDERED: diphenhydrAMINE 50 MG/ML VIAL IVP ONE (13:15)
[2020-03-13] MEDS ORDERED: KETOROLAC 30 MG/ML VIAL. IVP ONE (13:15)
[2020-03-13] MEDS ORDERED: methylPREDNISolone SOD SUCC PF 125 MG/2 ML VIAL. IV ONE (13:15)
--- NOTE | 2020-03-13 13:20 | PHYS DOC ---
Past Medical History Past Medical History: Anxiety, Asthma, Bipolar, Depression, GERD, Hypotension, Other Additional Past Medical Histor: ADHD, BRADYCARDIA, POC, PTSD, shingles, sick sinus syndrome Past Surgical History: Appendectomy, Cholecystectomy, , Pacemaker, Tonsillectomy, Other Additional Past Surgical Histo: (R) KNEE REPAIR Smoking Status: Never Smoker Alcohol Use: None Drug Use: Marijuana General Adult EDM: Chief Complaint: DENTAL PROBLEM HPI: HPI: Patient is a 30 year old female who presents with right-sided dental's with a right upper back tooth that is broken. She has had this for the last 3 weeks and has been on clindamycin. Patient is allergic to penicillins and cephalosporins, doxycycline, clarithromycin, fentanyl, levofloxacin, erythromycin, NSAIDs, iodine, morphine. Patient states she has a oral surgeon appointment on the . Patient went to [facility] today and they sent her to the ER to be evaluated. Patient states she has not been running fever she denies nausea, abdominal pain, vomiting, diarrhea, chills. She does have right-sided facial swelling that she states has increased. Review of Systems: Review of Systems: HENT: Denies nasal congestion or sore throat. Facial swelling and dental pain. [] Heart Score: Risk Factors: Risk Factors: DM, Current or recent (<one month) smoker, HTN, HLP, family history of CAD, obesity. Risk Scores: Score 0 - 3: 2.5% MACE over next 6 weeks - Discharge Home Score 4 - 6: 20.3% MACE over next 6 weeks - Admit for Clinical Observation Score 7 - 10: 72.7% MACE over next 6 weeks - Early Invasive Strategies Current Medications: Current Medications Medications (Trade) Dose Ordered Sig/Luzmaria Start Time Stop Time Status Last Admin Dose Admin Clindamycin Phosphate 50 ml @ 100 mls/hr 1X ONCE 03/13/20 13:15 03/13/20 13:44 UNV Diphenhydramine HCl (Benadryl) 25 mg 1X ONCE 03/13/20 13:15 03/13/20 13:16 UNV Fentanyl Citrate (Fentanyl 2ml Vial) 50 mcg 1X ONCE 03/13/20 13:15 03/13/20 13:16 UNV Methylprednisolone Sodium Succinate (SOLU-Medrol 125MG VIAL) 125 mg 1X ONCE 03/13/20 13:15 03/13/20 13:16 UNV Ondansetron HCl (Zofran) 4 mg 1X ONCE 03/13/20 13:15 03/13/20 13:16 UNV Sodium Chloride 1,000 ml @ 1,000 mls/hr 1X ONCE 03/13/20 13:15 03/13/20 14:14 UNV Allergies: Allergies: Allergies Coded Allergies Type Severity Reaction Last Updated Verified Cephalosporins Allergy Severe 03/31/19 Yes Penicillins Allergy Severe Anaphylaxis 03/31/19 Yes chicken derived Allergy Severe ANAPHYLAXIS 03/31/19 Yes propofol Allergy Severe 03/31/19 Yes acyclovir Allergy Intermediate abdominal pain 03/31/19 Yes aspirin Allergy Intermediate 03/31/19 Yes azithromycin Allergy Intermediate Itching 02/28/18 Yes bupropion HCl Allergy Intermediate tachycardia 04/25/15 Yes buspirone Allergy Intermediate 03/31/19 Yes cephalexin Allergy Intermediate Itching 07/18/14 Yes clarithromycin Allergy Intermediate "oral vescicles" 07/18/14 Yes doxycycline Allergy Intermediate Itching/facial swelling 07/18/14 Yes erythromycin base Allergy Intermediate Itching/pain 07/18/14 Yes fentanyl Allergy Intermediate Hives 07/18/14 Yes fluvoxamine maleate Allergy Intermediate Hives 07/18/14 Yes gabapentin Allergy Intermediate Hives 07/18/14 Yes honey Allergy Intermediate Itching 07/18/14 Yes iodine Allergy Intermediate 03/31/19 Yes levofloxacin Allergy Intermediate arthralgias, myalgias 07/18/14 Yes montelukast sodium Allergy Intermediate Nausea and Vomiting/headaches 07/18/14 Yes morphine Allergy Intermediate Itching, TOLERATES HYDROMORPHONE 07/24/14 Yes naproxen Allergy Intermediate 03/31/19 Yes pantoprazole Allergy Intermediate Swelling 03/07/15 Yes shrimp Allergy Intermediate Swelling 02/28/18 Yes trazodone Allergy Intermediate 07/24/14 Yes ziprasidone Allergy Intermediate 10/13/16 Yes Physical Exam: PE: Constitutional: Well developed, well nourished, no acute distress, non-toxic appearance. [] HENT: Normocephalic, atraumatic, bilateral external ears normal, oropharynx moist, no oral exudates, nose normal. Right-sided facial tenderness and swel ling with right upper back broken tooth. [] Eyes: PERRLA, EOMI, conjunctiva normal, no discharge. [] Neck: Normal range of motion, no tenderness, supple, no stridor. [] Cardiovascular:Heart rate regular rhythm, no murmur [] Lungs & Thorax: Bilateral breath sounds clear to auscultation [] Abdomen: Bowel sounds normal, soft, no tenderness, no masses, no pulsatile masses. [] Skin: Warm, dry, no erythema, no rash. [] Back: No tenderness, no CVA tenderness. [] Extremities: No tenderness, no cyanosis, no clubbing, ROM intact, no edema. [] Neurologic: Alert and oriented X 3, normal motor function, normal sensory function, no focal deficits noted. [] Psychologic: Affect normal, judgement normal, mood normal. [] EKG: EKG: [] Radiology/Procedures: Radiology/Procedures: [] Course & Med Decision Making: Course & Med Decision Making Pertinent Labs and Imaging studies reviewed. (See chart for details) Patient rates her pain a 10 out of 10. Patient is given 1L NS, Solu-Medrol, Dud[place], IV clindamycin in the ED. Patient has a right-sided abscess but no facial cellulitis and she is afebrile. She is tender with palpation to the right side of the face into the inside of the mouth. No drainage is seen. Dr. Brunner has gone and seen the patient himself to. Patient cannot be given any NSAIDs because she is allergic to them. Patient is afebrile and hemodynamically stable. Patient is given clindamycin and Percocet to go home on. Patient to keep her scheduled appointment with as scheduled. [] Allison Disclaimer: Allison Disclaimer: This electronic medical record was generated, in whole or in part, using a voice recognition dictation system. Departure Departure Impression: Primary Impression: Dental abscess Disposition: HOME, SELF-CARE Condition: STABLE Referrals: TARYN OGDEN MD (PCP) Patient Instructions: Dental Abscess Additional Instructions: Follow-up with dental surgeon as scheduled. Take medication as prescribed. Drink plenty of fluids. Scripts Clindamycin Hcl (CLINDAMYCIN HCL) 300 Mg Capsule 1 CAP PO TID, #30 CAP Prov: JODEEDUSTINSILVESTRE M [employer]NAGER 03/13/20 Oxycodone HCl/Acetaminophen (Percocet 5-325 mg Tablet) 1 Each Tablet 1 TAB PO PRN TID PRN for PAIN MDD 3 Tablet(s) for 5 Days, #15 TAB 0 Refills Prov: SILVESTRE ELLSWORTH APRN 03/13/20 Justicifation of Admission Dx: Justifications for Admission: Justification of Admission Dx: No (NOT INDICATED) SILVESTRE ELLSWORTH APRN Mar 13, 2020 13:20
[2020-03-13] MEDS ORDERED: HYDROcodone/APAP 5/325MG 1 TAB TABLET PO ONE (13:30)
[2020-03-13 14:40] LABS: CALCIUM 9.3 mg/dL (8.5-10.1); GFR 65.6; POTASSIUM 4.2 mmol/L (3.5-5.1)
[2020-03-13 14:46] LABS: ALBUMIN 4.1 g/dL (3.4-5.0); ALBUMIN/GLOBULIN RATIO 1.2 (1.0-1.7); BASO # 0.1 x10^3/uL (0.0-0.2); BASO % 1 % (0-3); EOS # 0.2 x10^3/uL (0.0-0.7); EOS % 2 % (0-3); HEMATOCRIT 40.1 % (36.0-47.0); HEMOGLOBIN 13.7 g/dL (12.0-15.5); LYMPH # 2.9 x10^3/uL (1.0-4.8); LYMPH % 27 % (24-48); MEAN CORPUSCULAR HEMOGLOBIN 30 pg (25-35); MEAN CORPUSCULAR HGB CONC 34 g/dL (31-37); MEAN CORPUSCULAR VOLUME 86 fL (79-100); MONO # 0.6 x10^3/uL (0.0-1.1); MONO % 6 % (0-9); NEUT % 65 % (31-73); PLATELET COUNT 261 x10^3/uL (140-400); RED BLOOD COUNT 4.64 x10^6/uL (3.50-5.40); RED CELL DISTRIBUTION WIDTH 14.8 % (11.5-14.5); TOTAL BILIRUBIN 0.2 mg/dL (0.2-1.0); TOTAL PROTEIN 7.6 g/dL (6.4-8.2); WHITE BLOOD COUNT 10.8 x10^3/uL (4.0-11.0)
[2020-03-13] MEDS ORDERED: OXYC-325 PO (15:08)
[2020-03-13] MEDS ORDERED: CLIN300C8 PO (15:08)
[2020-03-13 15:50] VITALS: BP 117/70
== END 2020-03-13 15:56 | disposition home or self-care (01) ==
LOC: ER 12:41
DX: K04.7 Periapical abscess without sinus (principal); J45.909 Unspecified asthma, uncomplicated; F31.9 Bipolar disorder, unspecified; K21.9 Gastro-esophageal reflux disease without esophagitis; Z95.0 Presence of cardiac pacemaker; Z88.0 Allergy status to penicillin; Z88.1 Allergy status to other antibiotic agents; Z88.4 Allergy status to anesthetic agent; Z88.5 Allergy status to narcotic agent; Z91.013 Allergy to seafood; Z91.018 Allergy to other foods; Z88.8 Allergy status to other drugs, medicaments and biological substances
CPT/HCPCS: 36415; 80053; 85025; 96365; 96375; 99285; J1200; J2405; J2930; J3490; J7030

== ENCOUNTER 2020-04-10 09:04 | Emergency (ER) | payer OTHER ==
[~2020-04-10] VITALS: Ht 170.2 cm; Wt 118.0 kg
[~2020-04-10 09:04] MED LIST changes: +CLIN300C8 PO; +OXYC-325 PO
[2020-04-10 09:43] LABS: BILIRUBIN,URINE NEGATIVE (NEG); CLARITY,URINE CLEAR; COLOR,URINE YELLOW; NITRITE,URINE NEGATIVE (NEG); PROTEIN,URINE NEGATIVE (NEG-TRACE); UROBILINOGEN,URINE 0.2 mg/dL (0.2 mg/dL)
[2020-04-10] MEDS ORDERED: IV NORMAL SALINE 1000ML BAG 1,000 ML IV ONE (10:00)
[2020-04-10] MEDS ORDERED: ONDANSETRON PF 4 MG/2 ML VIAL. IVP ONE (10:00)
[2020-04-10 10:06] LABS: BACTERIA,URINE FEW /HPF (0-FEW); RBC,URINE OCC /HPF (0-2); SQUAMOUS EPITHELIAL CELL,UR MANY /LPF; WBC,URINE OCC /HPF (0-4)
[2020-04-10 10:06] LABS: BASO # 0.1 x10^3/uL (0.0-0.2); BASO % 1 % (0-3); EOS % 0 % (0-3); HEMATOCRIT 40.7 % (36.0-47.0); HEMOGLOBIN 13.7 g/dL (12.0-15.5); LYMPH % 10 % (24-48); MEAN CORPUSCULAR HEMOGLOBIN 29 pg (25-35); MEAN CORPUSCULAR HGB CONC 34 g/dL (31-37); MEAN CORPUSCULAR VOLUME 86 fL (79-100); MONO # 0.3 x10^3/uL (0.0-1.1); MONO % 3 % (0-9); NEUT # 9.4 x10^3/uL (1.8-7.7); NEUT % 87 % (31-73); PLATELET COUNT 275 x10^3/uL (140-400); RED BLOOD COUNT 4.75 x10^6/uL (3.50-5.40); RED CELL DISTRIBUTION WIDTH 15.1 % (11.5-14.5); WHITE BLOOD COUNT 10.8 x10^3/uL (4.0-11.0)
[2020-04-10 10:15] LABS: CALCIUM 8.7 mg/dL (8.5-10.1); CREATININE 1.2 mg/dL (0.6-1.0); GFR 53.1; POTASSIUM 3.9 mmol/L (3.5-5.1)
[2020-04-10 10:20] LABS: ALBUMIN 3.9 g/dL (3.4-5.0); ALBUMIN/GLOBULIN RATIO 1.1 (1.0-1.7); TOTAL BILIRUBIN 0.7 mg/dL (0.2-1.0); TOTAL PROTEIN 7.4 g/dL (6.4-8.2)
[2020-04-10 11:04] LABS: U PREG PATIENT NEGATIVE (NEG)
[2020-04-10 11:19] VITALS: BP 128/76
--- NOTE | 2020-04-10 11:38 | PHYS DOC ---
Past Medical History Past Medical History: Anxiety, Asthma, Bipolar, Depression, GERD, Hypotension, Other Additional Past Medical Histor: ADHD, BRADYCARDIA, POC, PTSD, shingles, sick sinus syndrome Past Surgical History: Appendectomy, Cholecystectomy, , Pacemaker, Tonsillectomy, Other Additional Past Surgical Histo: (R) KNEE REPAIR Smoking Status: Never Smoker Alcohol Use: None Drug Use: Marijuana General Adult EDM: Chief Complaint: NAUSEA/VOMITING/DIARRHA HPI: HPI: Patient is a 30 year old 30-year-old female who presents with nausea, vomiting, lightheadedness. Patient states she drank a large amount of alcohol last night which is unusual for her. She woke up this morning and has had multiple episodes of vomiting. She states when she sits up she feels very lightheaded. She denies any abdominal pain. She denies any fever. Review of Systems: Review of Systems: General: Denies fever, chills, sweats, fatigue Eyes: Denies drainage, blurred vision, eye redness HENT: Denies rhinorrhea, sore throat, earache Respiratory: Denies cough, shortness of breath, wheezing Cardiac: Denies edema, palpitations, chest pain GI: Reports nausea, vomiting. MSK: Denies neck pain, back pain Skin: Denies rash, jaundice Neuro: Denies headache, dizziness reports lightheadedness Psychiatric: Denies SI/HI Heart Score: Risk Factors: Risk Factors: DM, Current or recent (<one month) smoker, HTN, HLP, family history of CAD, obesity. Risk Scores: Score 0 - 3: 2.5% MACE over next 6 weeks - Discharge Home Score 4 - 6: 20.3% MACE over next 6 weeks - Admit for Clinical Observation Score 7 - 10: 72.7% MACE over next 6 weeks - Early Invasive Strategies Current Medications: Current Medications Medications (Trade) Dose Ordered Sig/Luzmaria Start Time Stop Time Status Last Admin Dose Admin Ondansetron HCl (Zofran) 4 mg 1X ONCE 04/10/20 10:00 04/10/20 10:01 DC 04/10/20 10:07 4 MG Sodium Chloride 1,000 ml @ 0 mls/hr 1X ONCE 04/10/20 10:00 04/10/20 10:01 DC 04/10/20 10:08 999 MLS/HR Allergies: Allergies: Allergies Coded Allergies Type Severity Reaction Last Updated Verified Cephalosporins Allergy Severe 03/31/19 Yes NSAIDS (Non-Steroidal Anti-Inflamma Allergy Severe 03/13/20 Yes Penicillins Allergy Severe Anaphylaxis 03/31/19 Yes chicken derived Allergy Severe ANAPHYLAXIS 03/31/19 Yes propofol Allergy Severe 03/31/19 Yes acyclovir Allergy Intermediate abdominal pain 03/31/19 Yes aspirin Allergy Intermediate 03/31/19 Yes azithromycin Allergy Intermediate Itching 02/28/18 Yes bupropion HCl Allergy Intermediate tachycardia 04/25/15 Yes buspirone Allergy Intermediate 03/31/19 Yes cephalexin Allergy Intermediate Itching 07/18/14 Yes clarithromycin Allergy Intermediate "oral vescicles" 07/18/14 Yes doxycycline Allergy Intermediate Itching/facial swelling 07/18/14 Yes erythromycin base Allergy Intermediate Itching/pain 07/18/14 Yes fentanyl Allergy Intermediate Hives 07/18/14 Yes fluvoxamine maleate Allergy Intermediate Hives 07/18/14 Yes gabapentin Allergy Intermediate Hives 07/18/14 Yes honey Allergy Intermediate Itching 07/18/14 Yes iodine Allergy Intermediate 03/31/19 Yes levofloxacin Allergy Intermediate arthralgias, myalgias 07/18/14 Yes montelukast sodium Allergy Intermediate Nausea and Vomiting/headaches 07/18/14 Yes morphine Allergy Intermediate Itching, TOLERATES HYDROMORPHONE 07/24/14 Yes naproxen Allergy Intermediate 03/31/19 Yes pantoprazole Allergy Intermediate Swelling 03/07/15 Yes shrimp Allergy Intermediate Swelling 02/28/18 Yes trazodone Allergy Intermediate 07/24/14 Yes ziprasidone Allergy Intermediate 10/13/16 Yes Physical Exam: PE: General: Awake, alert, NAD. Well Nourished, well hydrated. Cooperative HEENT: Atraumatic, EOMI, PERRL, airway patent, moist oral mucosa Neck: Supple, trachea midline Respiratory: CTA bilaterally, normal effort, no wheezing/crackles CV: RRR, no murmur, cap refill <2 GI: Soft, nondistended, nontender, no masses MSK: No obvious deformities Skin: Warm, dry, intact Neuro: A&O x3, speech NL, sensory and motor grossly intact, no focal deficits Psych: Normal affect, normal mood, not suicidal or homicidal Current Patient Data: Labs: Laboratory Tests Test 04/10/20 09:20 04/10/20 09:55 Urine Collection Type Void Urine Color Yellow Urine Clarity Clear Urine pH 7.0 (<5.0-8.0) Urine Specific Halfway 1.020 (1.000-1.030) Urine Protein Negative mg/dL (NEG-TRACE) Urine Glucose (UA) Negative mg/dL (NEG) Urine Ketones (Stick) Negative mg/dL (NEG) Urine Blood Negative (NEG) Urine Nitrite Negative (NEG) Urine Bilirubin Negative (NEG) Urine Urobilinogen Dipstick 0.2 mg/dL (0.2 mg/dL) Urine Leukocyte Esterase Negative (NEG) Urine RBC Occ /HPF (0-2) Urine WBC Occ /HPF (0-4) Urine Squamous Epithelial Cells Many /LPF Urine Bacteria Few /HPF (0-FEW) Urine Mucus Slight /LPF Urine Test Negative (NEG) White Blood Count 10.8 x10^3/uL (4.0-11.0) Red Blood Count 4.75 x10^6/uL (3.50-5.40) Hemoglobin 13.7 g/dL (12.0-15.5) Hematocrit 40.7 % (36.0-47.0) Mean Corpuscular Volume 86 fL (79-100) Mean Corpuscular Hemoglobin 29 pg (25-35) Mean Corpuscular Hemoglobin Concent 34 g/dL (31-37) Red Cell Distribution Width 15.1 % (11.5-14.5) H Platelet Count 275 x10^3/uL (140-400) Neutrophils (%) (Auto) 87 % (31-73) H Lymphocytes (%) (Auto) 10 % (24-48) L Monocytes (%) (Auto) 3 % (0-9) Eosinophils (%) (Auto) 0 % (0-3) Basophils (%) (Auto) 1 % (0-3) Neutrophils # (Auto) 9.4 x10^3/uL (1.8-7.7) H Lymphocytes # (Auto) 1.0 x10^3/uL (1.0-4.8) Monocytes # (Auto) 0.3 x10^3/uL (0.0-1.1) Eosinophils # (Auto) 0.0 x10^3/uL (0.0-0.7) Basophils # (Auto) 0.1 x10^3/uL (0.0-0.2) Platelet Estimate Pending Sodium Level 143 mmol/L (136-145) Potassium Level 3.9 mmol/L (3.5-5.1) Chloride Level 106 mmol/L (98-107) Carbon Dioxide Level 28 mmol/L (21-32) Anion Gap 9 (6-14) Blood Urea Nitrogen 14 mg/dL (7-20) Creatinine 1.2 mg/dL (0.6-1.0) H Estimated GFR (Cockcroft-Gault) 53.1 BUN/Creatinine Ratio 12 (6-20) Glucose Level 116 mg/dL (70-99) H Calcium Level 8.7 mg/dL (8.5-10.1) Total Bilirubin 0.7 mg/dL (0.2-1.0) Aspartate Amino Transferase (AST) 20 U/L (15-37) Alanine Aminotransferase (ALT) 25 U/L (14-59) Alkaline Phosphatase 78 U/L (46-116) Total Protein 7.4 g/dL (6.4-8.2) Albumin 3.9 g/dL (3.4-5.0) Albumin/Globulin Ratio 1.1 (1.0-1.7) Lipase 86 U/L (73-393) Ethyl Alcohol Level < 10 mg/dL (0-10) Laboratory Tests 04/10/20 09:55 Laboratory Tests 04/10/20 09:55 Vital Signs: Vital Signs Date Time Temp Pulse Resp B/P (MAP) Pulse Ox O2 Delivery O2 Flow Rate FiO2 04/10/20 09:11 98.0 87 20 135/64 (87) 97 Room Air 98.0 EKG: EKG: [] Radiology/Procedures: Radiology/Procedures: [] Course & Med Decision Making: Course & Med Decision Making Pertinent Labs and Imaging studies reviewed. (See chart for details) Patient is a 30-year-old female who presents to the emergency room complaining of nausea and vomiting after a night of drinking. Patient appears to have dehydration from a large amount of alcohol. She was given fluids and nausea medicine. Lab work is unremarkable. Patient is feeling significantly better would like to go home. Patient's test results and vitals while in the ED were fully reviewed and discussed with the patient. Patient is stable and at this time does not need admission to the hospital. We have discussed strict return precautions and the importance of following up with their Primary Care Physician. Patient stated understanding and was given an opportunity to ask any questions. Patient is in agreement with plan. Dragon Disclaimer: Dragon Disclaimer: This electronic medical record was generated, in whole or in part, using a voice recognition dictation system. Departure Departure Impression: Primary Impression: Hangover without complication Disposition: HOME, SELF-CARE Condition: IMPROVED Referrals: TARYN OGDEN MD (PCP) Patient Instructions: Alcohol Intoxication, [id number] Justicifation of Admission Dx: Justifications for Admission: Justification of Admission Dx: No HUY MERIDA MD Apr 10, 2020 11:38
[2020-04-10] MEDS ORDERED: ONDA4TAB7 PO (11:49)
[2020-04-10 12:04] LABS: % BANDS 3 % (0-9); % LYMPHS 14 % (24-48); % MONOS 2 % (0-10); % SEGS 81 % (35-66)
[2020-04-10 12:05] LABS: PLT ESTIMATE ADEQUATE (ADEQUATE)
== END 2020-04-10 11:54 | disposition home or self-care (01) ==
LOC: ER 09:04
DX: F10.129 Alcohol abuse with intoxication, unspecified (principal); Y90.0 Blood alcohol level of less than 20 mg/100 ml; R11.2 Nausea with vomiting, unspecified; R42 Dizziness and giddiness; F31.9 Bipolar disorder, unspecified; K21.9 Gastro-esophageal reflux disease without esophagitis; J45.909 Unspecified asthma, uncomplicated; Z88.0 Allergy status to penicillin; Z88.1 Allergy status to other antibiotic agents; Z88.4 Allergy status to anesthetic agent; Z88.5 Allergy status to narcotic agent; Z91.013 Allergy to seafood; Z88.6 Allergy status to analgesic agent; Z91.018 Allergy to other foods; Z88.8 Allergy status to other drugs, medicaments and biological substances
CPT/HCPCS: 36415; 80053; 81001; 81025; 83690; 85007; 85025; 96374; 99283; G0480; J2405; J7030

== ENCOUNTER → 2020-05-11 | Outpatient (CLI) | payer OTHER ==
--- NOTE | 2020-05-11 15:48 | NUR ---
pt's HR was in the 110's prior to MRI. [employer] rep. here and was concerned because she would need to set PM rate to 120 to override intrinsic rate. she requested that Dr. Tidwell be contacted to see if he was ok with that. Dr. Tidwell returned call- discussed the issue- he was ok with the plan to set PM rate to 120 during MRI. also discussed with that pt states she has not been feeling normal for a couple months and that her PM showed she had 3 episodes fo HR ranging [id number] in March. He stated that he would have the office call to schedule her an appointment. b/p prior to MRI was 107/77, post 111/70. [employer] rep returned PM to previous settings.
--- NOTE | 2020-05-11 16:35 | RAD ---
EXAM: MRI RIGHT KNEE DATE: 05/11/2020 1:00 PM CLINICAL INDICATION: RIGHT KNEE PAIN COMPARISON: None. TECHNIQUE: Multiplanar, multisequence MRI of the right knee was performed without contrast. FINDINGS: Examination is limited by motion artifact. No knee joint effusion. Small Nichols's cyst. The ACL and PCL are intact. The MCL, fibular collateral ligament, biceps femoris and IT band are grossly intact. Popliteus is also grossly intact. 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 TT-TG measures 1.2 cm. Extensor mechanism is intact. Essentially neutral patellar tracking. Medial meniscus: Intact Lateral meniscus: Intact No evidence for fracture or osteonecrosis. Mild chondral thinning medial patellar facet with subchondral edema. IMPRESSION: Examination is limited by motion artifact. Within these constraints: 1. Mild patellofemoral chondromalacia. 2. Small Nichols's cyst. 3. 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 Electronically signed by: Dayton De Souza MD (05/11/2020 4:32 PM) [id number]
== END | disposition home or self-care (01) ==
LOC: MRI 14:38
PROVIDERS: ATTEND Orthopaedic Surgery
DX: M71.21 Synovial cyst of popliteal space [Baker], right knee (principal); M94.261 Chondromalacia, right knee
CPT/HCPCS: 73721

== ENCOUNTER → 2020-10-05 | Outpatient (CLI) | payer OTHER ==
[~2020-10-05] MED LIST changes: -CETI10TA24 PO; +CETI10TA74 PO; -CLIN300C8 PO; +CLIN300C9 PO
[2020-10-05 09:10] LABS: BASO # 0.1 x10^3/uL (0.0-0.2); BASO % 1 % (0-3); EOS # 0.1 x10^3/uL (0.0-0.7); EOS % 1 % (0-3); HEMATOCRIT 39.4 % (36.0-47.0); LYMPH # 2.1 x10^3/uL (1.0-4.8); LYMPH % 25 % (24-48); MEAN CORPUSCULAR HEMOGLOBIN 28 pg (25-35); MEAN CORPUSCULAR HGB CONC 33 g/dL (31-37); MEAN CORPUSCULAR VOLUME 85 fL (79-100); MONO # 0.6 x10^3/uL (0.0-1.1); MONO % 7 % (0-9); NEUT # 5.5 x10^3/uL (1.8-7.7); NEUT % 67 % (31-73); PLATELET COUNT 279 x10^3/uL (140-400); RED BLOOD COUNT 4.65 x10^6/uL (3.50-5.40); RED CELL DISTRIBUTION WIDTH 14.6 % (11.5-14.5); WHITE BLOOD COUNT 8.3 x10^3/uL (4.0-11.0)
[2020-10-05 09:23] LABS: ALBUMIN 3.5 g/dL (3.4-5.0); ALBUMIN/GLOBULIN RATIO 0.9 (1.0-1.7); CALCIUM 8.9 mg/dL (8.5-10.1); CREATININE 1.1 mg/dL (0.6-1.0); GFR 58.7; POTASSIUM 3.9 mmol/L (3.5-5.1); TOTAL BILIRUBIN 0.3 mg/dL (0.2-1.0); TOTAL PROTEIN 7.2 g/dL (6.4-8.2)
[2020-10-05 09:24] LABS: CHOLESTEROL/HDL RATIO 3.7
[2020-10-05 09:31] LABS: FREE T4 0.87 ng/dL (0.76-1.46); THYROID STIM HORMONE (TSH) 2.477 uIU/mL (0.358-3.74)
[2020-10-05 19:09] LABS: THYROXINE 6.5 ug/dL (4.5-12.0)
[2020-10-05 21:08] LABS: HEMOGLOBIN A1C 5.3 % (4.8-5.6)
== END ==
LOC: LAB 08:29
PROVIDERS: ATTEND Internal Medicine
DX: E03.9 Hypothyroidism, unspecified (principal); F31.9 Bipolar disorder, unspecified; R63.5 Abnormal weight gain
CPT/HCPCS: 36415; 80053; 80061; 83036; 84436; 84439; 84443; 84479; 85025